=== PATIENT | male | born 1960 | race Caucasian/White ===

== ENCOUNTER 2017-11-14 15:02 | Inpatient (IN) ==
--- NOTE | 2017-11-14 18:39 | Internal Med History&Physical ---
<Adriel Yeager - Last Filed: 11/14/17 18:51> Date of Encounter: 11/14/17 Time of Encounter: 18:33 Internal Medicine - H&P: HPI Chief complaint: Dysphagia, esophageal tumor Admitted From: Direct Admit History of present illness: Mr. Martinez is a 57 year old male with a PMH of GERD and hypertension who presented to [facility] on 11/14 as a direct admit from GI after endoscopy demonstrated a near obstructing tumor in the lower third of the esophagus. Patient reports that approximately 3 months ago, he had begun experiencing swallowing difficulty. Patient noted that whenever he consumed solid food, he would get stuck in his throat and develop an discomfort in the upper third of his chest before spitting his food back up. He presented to his primary care provider on 09/23, who referred him to GI for further workup. Dr. Laughlin saw the patient on 11/06 who recommended an EGD at the time. EGD was performed on 11/14 and demonstrated the following: Large, ulcerating mass with no bleeding and no stigmata in the lower third of the esophagus, near obstructing, circumferential. Biopsies were taken, and patient was admitted to the hospital per the recommendations of GI for further management. GI recommends the placement of a PEG tube, as patient has had inadequate by mouth intake. He reports that this progressively got worse, to the point where it would occasionally involve liquids. He notes that over the past 3 months, he has lost approximately 30 pounds. He states that he feels thirsty right now. He denies having any abdominal pain, nausea, vomiting, fever, chills, fatigue, hematemesis, or chest pain. Patient has no further complaints. Past Med Surg Social Fam HX - Past Medical History Medical history: CVA, GERD, hypertension Psychiatric history: anxiety - Past Surgical History Surgical History: tonsilectomy - Social History Smoking Status: Never smoker Alcohol use: occasionally Drug use: none - Family History Maternal Grandfather Living Status: Hx Family Cancer: Yes (colon) Internal Medicine - H&P: Meds Metoprolol Succinate [Metoprolol Succinate] 50 mg PO DAILY 11/14/17 [History] Omeprazole [PriLOSEC] 40 mg PO DAILY 11/14/17 [History] Ranitidine HCl [Acid [employer]] 150 mg PO BID 11/14/17 [History] Sucralfate [Carafate] 1 gm PO BID 11/14/17 [History] 3 Allergy/AdvReac Type Severity Reaction Status Date / Time No Known Allergies Allergy Verified 11/14/17 17:27 All Systems PM: A 10-system review of systems was performed and is negative for pertinent findings except as documented above in the HPI. - Constitutional Constitutional: weight loss (Patient admits to a 30 pound weight loss in last 3 months), no chills, no fatigue - Cardiovascular Cardiovascular ROS IM: no chest pain, no dyspnea - Respiratory Respiratory: no cough, no dyspnea, no hemoptysis - Gastrointestinal Gastrointestinal: dysphagia, other (Dysphagia), no bloating, no change in bowel habits, no dyspepsia - Constitutional Vitals: Temp Pulse Resp BP Pulse Ox 98.3 F 71 18 154/94 94 11/14/17 16:48 11/14/17 16:48 11/14/17 16:48 11/14/17 16:48 11/14/17 16:48 General appearance: Present: A&O X 3 - Respiratory Respiratory exam: Present: CTAB. Absent: accessory muscle use, rales, rhonchi, wheezes - Cardiovascular Cardiovascular exam: Present: RRR, +S1, +S2. Absent: diastolic murmur, gallop, rubs, systolic murmur - GI/Abdominal GI/Abdominal exam: Present: normal bowel sounds, soft, no peritoneal signs. Absent: distended, tenderness - Psychiatric Psychiatric exam: Present: flat affect - Other Additional findings: Physical exam is unremarkable. Patient denies having any current symptoms. 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 Current Visit: Yes Status: Acute Assessment and plan: Endoscopy on 11/14 demonstrated near obstructing, circumferential mass - Evaluated by GI after a 3 month history of dysphagia and weight loss - Per the recommendations of GI, plan is to place PEG tube, this patient has had poor by mouth intake for the last several weeks - Esophageal mass will be addressed surgically at a later time Plan: - Patient is currently NPO; anticipate placement of PEG tube - Consult to general surgery - [facility] IVF at 100 mL/hr - Time Spent With Patient Total time spent is greater than 50% in coordination of care (as documented) at patient's floor/unit and/or counseling patient: <Carlos Pleitez - Last Filed: 11/14/17 20:47> Date of Encounter: 11/14/17 Internal Medicine - H&P: HPI History of present illness: Mr. Martinez is a 57 year old male All Systems PM: A 10-system review of systems was performed and is negative for pertinent findings except as documented above in the HPI. - Constitutional Vitals: Temp Pulse Resp BP Pulse Ox 98.1 F 80 15 157/91 96 11/14/17 18:47 11/14/17 18:47 11/14/17 18:47 11/14/17 18:47 11/14/17 18:47 - Attending Attestation I examined this patient and my medical decision-making was reviewed with the Resident Physician on 11/14/17. I agree with the documented findings, disposition and treatment plan as described except to the extent set forth below. Mr Martinez is 57 y/o male with hx of HTN admitted from endoscopy due to esophageal mass. He has had issues with dysphagia and weight loss and underwent EGD today. Mass found in lower third of esophagus. Currently he denies pain or dyspnea. He is thirsty. No fever or chills. Exam alert Mod distress Mucus membranes dry Heart reg No wheeze abd obese and soft No edema I/P 1. Esophageal mass 2. HTN 3. Morbid obesity Nonsmoker, occasional ETOH. Most likely related to GERD. CTs ordered Surgery and onc consulted. 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 Unable to take PO at this time. Qualifiers: Hypertension type: essential hypertension Qualified Code(s): I10 - Essential (primary) hypertension (4) Morbid obesity with BMI of 45.0-49.9, adult Current Visit: Yes Status: Chronic - Time Spent With Patient Total time spent is greater than 50% in coordination of care (as documented) at patient's floor/unit and/or counseling patient:
[2017-11-14] MEDS ORDERED: Naloxone 0.4 MG/ML INJ IVP PRN (18:45)
[2017-11-14] MEDS ORDERED: Isovue-370 500 ML INFUS..BTL IV ONE (19:36)
[2017-11-14] MEDS ORDERED: *HR* LORazepam 2 MG/ML VIAL IVP PRN (19:38)
[2017-11-14] MEDS: 0.9 % Sodium Chloride 1,000 ML IVC SCH (20:11)
[2017-11-14 21:43] LABS: BUN/Creatinine Ratio 12 (6-26); Blood Urea Nitrogen 11 mg/dL (6-20); Carbon Dioxide 25 mEq/L (23-29); Chloride 104 mEq/L (98-107); Glucose 102 mg/dL (70-105); Osmolality,Calculated 282 (280-300); Potassium 3.9 mEq/L (3.5-5.1); Sodium 136 mEq/L (136-145); eGFR For Non-African Americans > 60 (> 60)
[2017-11-15] MEDS: Metoclopramide 10 MG/2 ML VIAL IVP SCH ×4 (00:09→17:24)
[2017-11-15] MEDS: Pantoprazole 40 MG VIAL IVP SCH ×2 (06:40→17:22)
[2017-11-15] MEDS: 0.9 % Sodium Chloride 1,000 ML IVC SCH (06:40)
[2017-11-15 06:41] LABS: Basophils % 0.4 %; Eosinophils # 0.3 K/mcL (0.0-0.6); Eosinophils % 2.6 %; Hematocrit 42.6 % (37.5-50.1); Hemoglobin 14.7 g/dL (12.9-16.9); Immature Granulocytes % 0.3 % (0-4); Lymphocytes # 2.2 K/mcL (0.6-4.6); Lymphocytes % 20.2 %; Mean Corpuscular HGB Conc 34.5 g/dL (31.6-35.5); Mean Corpuscular Hemoglobin 30.7 pg (28.0-33.3); Mean Corpuscular Volume 88.9 fL (83.0-100.0); Mean Platelet Volume 9.2 fL (9.4-12.4); Monocytes # 0.6 K/mcL (0.0-1.3); Neutrophils # 7.5 K/mcL (1.6-8.9); Platelet Count 281 K/mcL (140-400); Red Blood Count 4.79 M/mcL (4.19-5.50); Segmented Neutrophils % 70.5 %
[2017-11-15 06:46] LABS: INR 1.2; Prothrombin Time 13.5 Seconds (9.4-12.1)
[2017-11-15 07:00] LABS: BUN/Creatinine Ratio 11 (6-26); Blood Urea Nitrogen 10 mg/dL (6-20); Carbon Dioxide 25 mEq/L (23-29); Chloride 104 mEq/L (98-107); Glucose 99 mg/dL (70-105); Osmolality,Calculated 283 (280-300); Potassium 3.6 mEq/L (3.5-5.1); Sodium 137 mEq/L (136-145); eGFR For Non-African Americans > 60 (> 60)
--- NOTE | 2017-11-15 11:31 | Oncology Inp Consult Note ---
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 Martinez, his and sister today. I reviewed his history, imaging, labs and EGD report. 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 He has significant dysphagia and oral intake has been greatly impacted. To aid with this, I recommended G-tube placement. Per my experience with the [facility] thoracic surgical team, G-tubes are acceptable as a means of nutrition. Dr. Winston has scheduled placement tomorrow. I did review his imaging. He does not appear to have jorge l evidence of distant metastases, however he does have extensive mediastinal adenopathy as well as perigastric and celiac adenopathy. The lesions within the liver appeared to be cysts. PET/CT imaging will help clarify these issues better. I think this is amendable to one radiation port but will be quite large. This will impact the management of his cancer. We discussed the current standard approach to management which includes tri-modality therapy including concurrent chemoradiotherapy to be followed by surgical esophagectomy. The logistics, schedule and general side effects of therapy were discussed with the patient today. In preparation for treatment, I recommended outpatient PET CT imaging. I would recommend nutrition consultation after G-tube placement. After discharge, I will schedule follow-up with both radiation oncology as well as myself this coming week. - Data of Consult Requesting Physician: Carlos Pleitez DO - Consult Narrative Reason for consult: Esophageal cancer History of present illness: Mr. Martinez is a 57 year old male who noted worsening dysphagia to solid foods this past June/early July. He initially noted difficulty with food sticking in his distal esophagus including breads and meats. He is now unable to eat any bread or fibers meat product. This later progressed into it involving fluids as well. When drinking cold water, he will regurgitate this. He has a long-standing history of acid reflux. He has lost nearly 30 pounds over this period of time. He was referred to Dr. Laughlin who performed EGD and colonoscopy 11/14/2017. Colonoscopy revealed a 15 mm polyp in the sigmoid colon which was snared, internal hemorrhoids as well as diverticular disease but otherwise no significant abnormality. EGD revealed a fungating, nonbleeding, circumferential , and nearly obstructing mass 37 cm from the incisors concerning for distal esophageal adenocarcinoma. Biopsies were obtained. Pathology is pending. He was unable to pass the scope and therefore was unable to place an esophageal stent. Dr. Winston of general surgery has been consult it for feeding tube placement. I have been asked to meet with this patient to discuss further management. 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[employer]) - Family History Maternal Grandfather Living Status: Hx Family Cancer: Yes (colon) Medications and Allergies Metoprolol Succinate [Metoprolol Succinate] 50 mg PO DAILY 11/14/17 [History] Omeprazole [PriLOSEC] 40 mg PO DAILY 11/14/17 [History] Ranitidine HCl [Acid [employer]] 150 mg PO BID 11/14/17 [History] Sucralfate [Carafate] 1 gm PO BID 11/14/17 [History] 3 Allergy/AdvReac Type Severity Reaction Status Date / Time No Known Allergies Allergy Verified 11/14/17 17:27 All systems: reviewed and no additional remarkable complaints except as stated Constitutional: Present: fatigue, weight loss Eyes: Present: as per HPI Ears: Present: as per HPI Nose, mouth and throat: Present: as per HPI Cardiovascular: Present: dyspnea on exertion Respiratory: Present: as per HPI Gastrointestinal: Present: dysphagia, early satiety, vomiting Genitourinary: urinary frequency Integumentary: Present: as per HPI Neurological: Present: as per HPI Hematologic/Lymphatic: Present: as per HPI Oncology - Exam - Constitutional Vitals: Temp Pulse Resp BP Pulse Ox 98.4 F 72 18 117/68 96 11/15/17 11:09 11/15/17 11:09 11/15/17 11:09 11/15/17 11:09 11/15/17 11:09 General appearance: cooperative, no acute distress, obese - Head Head exam: Present: atraumatic, normal inspection, normocephalic - Eye Eye exam: Present: normal appearance, conjuntiva pink, sclera anicteric - ENT ENT exam: Present: mucous membranes moist, normal external ear exam - Neck Neck exam: Present: full ROM, normal inspection - Respiratory Respiratory exam: Present: CTAB - Cardiovascular Cardiovascular exam: Present: RRR - GI/Abdominal GI/Abdominal exam: Present: normal bowel sounds, soft - Extremities Exam Extremities exam: Present: normal inspection, pedal edema - Neurological Exam Neurological exam: Present: alert, CN II-XII intact, normal gait, oriented X3, no focal deficits - Skin Skin exam: Present: normal color Oncology - Results Labs: 3 11/15/17 11/15/17 11/15/17 09:56 06:28 06:28 WBC RBC Hgb Hct MCV MCH MCHC RDW Plt Count MPV Immature Gran % Seg Neutrophils % Lymphocytes % Monocytes % Eosinophils % Basophils % Neutrophils # Lymphocytes # Monocytes # Eosinophils # Basophils # PT 13.5 H INR 1.2 Sodium 137 Potassium 3.6 Chloride 104 Carbon Dioxide 25 BUN 10 Creatinine 0.89 Est GFR ( Amer) > 60 Est GFR (Non-Af Amer) > 60 BUN/Creatinine Ratio 11 Glucose 99 Calculated Osmolality 283 Calcium 9.0 Prealbumin 17.7 3 11/15/17 11/14/17 06:28 21:04 WBC 10.7 RBC 4.79 Hgb 14.7 Hct 42.6 MCV 88.9 MCH 30.7 MCHC 34.5 RDW 13.0 Plt Count 281 MPV 9.2 L Immature Gran % 0.3 Seg Neutrophils % 70.5 Lymphocytes % 20.2 Monocytes % 6.0 Eosinophils % 2.6 Basophils % 0.4 Neutrophils # 7.5 Lymphocytes # 2.2 Monocytes # 0.6 Eosinophils # 0.3 Basophils # 0.0 PT INR Sodium 136 Potassium 3.9 Chloride 104 Carbon Dioxide 25 BUN 11 Creatinine 0.94 Est GFR ( Amer) > 60 Est GFR (Non-Af Amer) > 60 BUN/Creatinine Ratio 12 Glucose 102 Calculated Osmolality [address] OF THE ABDOMEN AND PELVIS WITH CONTRAST; CT OF THE CHEST WITH CONTRAST 11/14/2017 9:06 pm; 11/14/2017 9:08 pm FINDINGS: Chest: Mediastinum: There are mildly enlarged mediastinal lymph nodes. For example, a right peritracheal lymph node measures 1.7 x 1.3 cm (series 2, image 40). Subcarinal lymph node measures 2.4 x 1.5 cm (series 2, image 85). There is focal mural thickening of the distal esophagus measures as much as 3.7 cm in thickness. Adjacent to that, there is a mid mildly enlarged lymph node which measures 1.1 x 1.1 cm (series 2, image 127). The more proximal esophagus is dilated and fluid-filled. The thoracic aorta is normal in caliber. The visualized pulmonary arteries are unremarkable in appearance. Lungs/pleura: Atelectasis/scarring is identified within the right costophrenic angle, with elevation of the right hemidiaphragm. No suspicious lung lesions are detected. Soft Tissues/Bones: No osteolytic or osteoblastic bone lesions are identified. Abdomen/Pelvis: Organs: Approximately 4-5 low-density lesions are identified within the hepatic parenchyma largest measuring 1.7 x 1.5 cm within the inferior right hepatic lobe. Based upon density, these are probably cysts, but the margins are slightly irregular, and therefore surveillance of those will be necessary. Gallbladder is unremarkable. No suspicious splenic abnormalities. Normal adrenals. The pancreas enhances homogeneously. No suspicious renal abnormalities are detected. Cyst within the left kidney measures 1.3 cm, a benign finding. Nonobstructing nephrolithiasis on the left is noted. GI/Bowel: There is mild diverticulosis of the large bowel, without CT evidence of diverticulitis, mainly in the region of the sigmoid colon. No small bowel abnormalities are detected. There is probable partial extension of the esophageal mass into the gastric cardia. Otherwise, the stomach and duodenum are unremarkable. Pelvis: Prostate is mildly enlarged. The urinary bladder is unremarkable. No free pelvic fluid is found. Peritoneum/Retroperitoneum: There are mildly enlarged upper abdominal lymph nodes. For example, a lymph node seen adjacent to the gastric cardia measures 1.8 x 1.2 cm (series 2, image 51). The abdominal aorta is normal in caliber. The superior mesenteric artery is enhancing. Bones/Soft Tissues: No osteolytic or osteoblastic bone lesions are identified within the abdomen pelvis. CT/CT abd pelvis w iv no oral IMPRESSION: Evidence a primary lower esophageal mass. There are enlarged mediastinal and upper abdominal lymph nodes, concerning for metastatic disease. There are several low-density lesions within the hepatic parenchyma, which measure water density, and therefore probably cysts. However, the margins are mildly irregular, and therefore surveillance of those on subsequent examinations is recommended. Mild diverticulosis of the large bowel, mainly in the region of the sigmoid colon, but without CT evidence of diverticulitis. Nonobstructing left nephrolithiasis. Consult Discharge Plan - Plan Referrals: Qasim Rodriguez MD [Partnered Physician] -
[2017-11-15] MEDS: *HR* Metoprolol 5 MG/5 ML VIAL IVP SCH ×2 (12:18→17:22)
--- NOTE | 2017-11-15 12:46 | General Surgery Consult Note ---
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 Patient agreed to procedure scheduled for tomorrow. Consent form was signed by the patient. IV fluids as per primary Further recommendations for esophageal mass per oncology History of Present Illness Consult date: 11/15/17 History of present illness: Patient states that he started noticing that he was having trouble swallowing solids starting in July he feels that he can still swallow liquids. But on further questioning he states that this is only small amounts of liquid slowly. Otherwise he ends up bringing the liquid back up. He does not have any abdominal pain. He denies diarrhea, constipation, blood in stool or blood in any vomit. States he has two Paternal uncles who had stomach/esophageal cancer. Occasionally drinks rum. Past Med Surg Social Fam HX - Past Medical History Medical history: CVA, GERD, hypertension Psychiatric history: anxiety - Past Surgical History Surgical History: tonsilectomy - Social History Smoking Status: Former smoker Alcohol use: occasionally Drug use: none - Family History Maternal Grandfather Living Status: Hx Family Cancer: Yes (colon) Medications and Allergies Metoprolol Succinate [Metoprolol Succinate] 50 mg PO DAILY 11/14/17 [History] Omeprazole [PriLOSEC] 40 mg PO DAILY 11/14/17 [History] Ranitidine HCl [Acid Principal Librarian] 150 mg PO BID 11/14/17 [History] Sucralfate [Carafate] 1 gm PO BID 11/14/17 [History] 3 Allergy/AdvReac Type Severity Reaction Status Date / Time No Known Allergies Allergy Verified 11/14/17 17:27 Review of Systems All systems PM: The remainder of the systems were reviewed and are negative - Constitutional weight loss (30 pounds since September), no anorexia, no fatigue - Cardiovascular no chest pain, no diaphoresis, no irregular heart rhythm - Respiratory no cough, no dyspnea, no chest congestion - Gastrointestinal dysphagia, vomiting, no abdominal pain, no hematemesis, no hematochezia General Surgery Exam Initial Vital Signs Temp Pulse Resp BP Pulse Ox 98.3 F 71 18 154/94 94 11/14/17 16:48 11/14/17 16:48 11/14/17 16:48 11/14/17 16:48 11/14/17 16:48 - Respiratory normal expansion, normal respiratory effort, clear to auscultation - Cardiovascular Cardiovascular exam: Present: RRR, no murmurs/rubs/gallops - Abdomen Abdomen general surgery: Present: bowel sounds present, soft, non tender - Musculoskeletal Present: normal posture - Psychiatric Psychiatric general surgery: Present: oriented to person, oriented to place, oriented to time Exam Initial Vital Signs Temp Pulse Resp BP Pulse Ox 98.3 F 71 18 154/94 94 11/14/17 16:48 11/14/17 16:48 11/14/17 16:48 11/14/17 16:48 11/14/17 16:48 Results - Labs 11/15/17 06:28 11/15/17 06:28 Abnormal lab results MPV 9.2 fL (9.4-12.4) L 11/15/17 06:28 PT 13.5 Seconds (9.4-12.1) H 11/15/17 06:28 Diabetes panel 11/14/17 11/15/17 Range/Units 21:04 06:28 Sodium 136 137 (136-145) mEq/L Potassium 3.9 3.6 (3.5-5.1) mEq/L Chloride 104 104 (98-107) mEq/L Carbon Dioxide 25 25 (23-29) mEq/L BUN 11 10 (6-20) mg/dL Creatinine 0.94 0.89 (0.70-1.30) mg/dL Glucose 102 99 (70-105) mg/dL Calcium 9.0 9.0 (8.6-10.3) mg/dL Calcium panel 11/14/17 11/15/17 Range/Units 21:04 06:28 Calcium 9.0 9.0 (8.6-10.3) mg/dL Pituitary panel 11/14/17 11/15/17 Range/Units 21:04 06:28 Sodium 136 137 (136-145) mEq/L Potassium 3.9 3.6 (3.5-5.1) mEq/L Chloride 104 104 (98-107) mEq/L Carbon Dioxide 25 25 (23-29) mEq/L BUN 11 10 (6-20) mg/dL Creatinine 0.94 0.89 (0.70-1.30) mg/dL Glucose 102 99 (70-105) mg/dL Calcium 9.0 9.0 (8.6-10.3) mg/dL Adrenal panel 11/14/17 11/15/17 Range/Units 21:04 06:28 Sodium 136 137 (136-145) mEq/L Potassium 3.9 3.6 (3.5-5.1) mEq/L Chloride 104 104 (98-107) mEq/L Carbon Dioxide 25 25 (23-29) mEq/L BUN 11 10 (6-20) mg/dL Creatinine 0.94 0.89 (0.70-1.30) mg/dL Glucose 102 99 (70-105) mg/dL Calcium 9.0 9.0 (8.6-10.3) mg/dL All other labs normal. 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 Current Visit: Yes Status: Acute discussed with patient and his and sister that he has an obstructing esophageal mass consistent wiht cancer, he has already spoken with Dr Henry from oncology Patient needs nutritional support discussed open Gtube versus Jtube and Dr Henry conferred that 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 Initially this was to solids but is now solids and liquids. He really only tolerates drinking warm broth. He sleeps propped up in chair and wakes aspirating on his regurgitated saliva. He has lost 30 lbs since September. He denies any abdominal pain, nausea or emesis. He has no melena or hematochezia. He had upper endoscopy by GI yesterday and they found an obstructing nonpassable esophageal mass at lower esophagus. CT scans abdomen/pelvis and chest show mediastinal and periesophageal lymph nodes. His states he has two paternal uncles with esophageal cancer (one of those with gastric cancer??) Past Med Surg Social Fam HX - Past Medical History Source: patient - Past Surgical History Surgical History: tonsilectomy - Social History Occupational status: employed Current living situation: Home, With Family Review of Systems All systems PM: reviewed and no additional remarkable complaints except as stated All systems PM: The remainder of the systems were reviewed and are negative General Surgery Exam Initial Vital Signs Temp Pulse Resp BP Pulse Ox 98.3 F 71 18 154/94 94 11/14/17 16:48 11/14/17 16:48 11/14/17 16:48 11/14/17 16:48 11/14/17 16:48 - General physical appearance well nourished, no distress, obese - Eyes PERRL, normal ocular movement - ENT normal mucosa, normocephalic - Neck trachea midline - Cardiovascular Cardiovascular exam: Present: RRR, no murmurs/rubs/gallops - Abdomen Abdomen general surgery: Present: bowel sounds present, soft, non tender. Absent: distended - Integumentary Integumentary general surgery: Present: warm and dry, no abnormal pigmentation - Neurologic Present: CN 2-12 grossly intact - Musculoskeletal Present: normal posture - Psychiatric Psychiatric general surgery: Present: A&Ox3, oriented to time Exam Initial Vital Signs Temp Pulse Resp BP Pulse Ox 98.3 F 71 18 154/94 94 11/14/17 16:48 11/14/17 16:48 11/14/17 16:48 11/14/17 16:48 11/14/17 16:48 Results - Labs 11/15/17 06:28 11/15/17 06:28 Abnormal lab results MPV 9.2 fL (9.4-12.4) L 11/15/17 06:28 PT 13.5 Seconds (9.4-12.1) H 11/15/17 06:28 Diabetes panel 11/14/17 11/15/17 Range/Units 21:04 06:28 Sodium 136 137 (136-145) mEq/L Potassium 3.9 3.6 (3.5-5.1) mEq/L Chloride 104 104 (98-107) mEq/L Carbon Dioxide 25 25 (23-29) mEq/L BUN 11 10 (6-20) mg/dL Creatinine 0.94 0.89 (0.70-1.30) mg/dL Glucose 102 99 (70-105) mg/dL Calcium 9.0 9.0 (8.6-10.3) mg/dL Calcium panel 11/14/17 11/15/17 Range/Units 21:04 06:28 Calcium 9.0 9.0 (8.6-10.3) mg/dL Pituitary panel 11/14/17 11/15/17 Range/Units 21:04 06:28 Sodium 136 137 (136-145) mEq/L Potassium 3.9 3.6 (3.5-5.1) mEq/L Chloride 104 104 (98-107) mEq/L Carbon Dioxide 25 25 (23-29) mEq/L BUN 11 10 (6-20) mg/dL Creatinine 0.94 0.89 (0.70-1.30) mg/dL Glucose 102 99 (70-105) mg/dL Calcium 9.0 9.0 (8.6-10.3) mg/dL Adrenal panel 11/14/17 11/15/17 Range/Units 21:04 06:28 Sodium 136 137 (136-145) mEq/L Potassium 3.9 3.6 (3.5-5.1) mEq/L Chloride 104 104 (98-107) mEq/L Carbon Dioxide 25 25 (23-29) mEq/L BUN 11 10 (6-20) mg/dL Creatinine 0.94 0.89 (0.70-1.30) mg/dL Glucose 102 99 (70-105) mg/dL Calcium 9.0 9.0 (8.6-10.3) mg/dL All other labs normal. - Imaging CT scan - abdomen: report reviewed, image reviewed CT scan - chest: report reviewed, image reviewed CT scan - pelvis: report reviewed, image reviewed - Attending Attestation I examined this patient and my medical decision-making was reviewed with the Resident Physician. I agree with the documented findings, disposition and treatment plan as described except to the extent set forth below.
--- NOTE | 2017-11-15 16:19 | Internal Med Progress Note ---
Hospitalist Progress Note - Encounter Date of Encounter: 11/15/17 Time of Encounter: 12:30 - Subjective Interval History: Mr Martinez has been in observation for esophageal obstruction due to esophageal mass. He remains moderate to high risk. Mr Martinez slept OK. He is going to have a little bit of broth today. To have open G tube placed tomorrow. No pain. No diarrhea. No fever or chills. Family is at bedside at this time. - Exam Vitals: Temp Pulse Resp BP Pulse Ox 97.9 F 83 18 134/85 92 11/15/17 14:30 11/15/17 14:30 11/15/17 14:30 11/15/17 14:30 11/15/17 14:30 Exam: General: Alert and oriented. Resting comfortably in bed at this time. Skin: Normal color, no rash, no lesions. Head: NC, atraumatic Eyes: EOM, pupils equal, round and reactive. ENT: Mucus membranes moist. No lesion. Cardiovascular: Normal S1 & S2, no rubs, murmurs or gallops. No JVD. Pulse regular. Lungs: Normal breath sounds, no wheezes or crackles. Good inspiratory effort Abdomen: Soft, non-tender, no rigidity. Normal bowel sounds. Obese. Extremities: No deformity, no edema or tenderness, no joint swelling or clubbing. Neurological: Normal cognition and motor skills. No focal deficit noted. Pulses: Carotid and radial pulses normal +2. Skin: No rash - Assessment and Plan (1) Esophageal obstruction Current Visit: Yes Status: Acute Assessment and Plan: Due to esophageal mass. Sips of broth today then NPO after midnight To have open G tube tomorrow. 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 - Open G tube tomorrow then tube feeds when OK with surgery. (3) Hypertension Current Visit: Yes Status: Chronic Assessment and Plan: IV meds ordered. Unable to take PO at this time. BP has been up and down. (4) Morbid obesity with BMI of 45.0-49.9, adult Current Visit: Yes Status: Chronic Assessment and Plan: Chronic issue. DVT Prophylaxis: SCDs - Time Spent with Patient Total time spent is greater than 50% in coordination of care (as documented) at patient's floor/unit and/or counseling patient: Internal Medicine: Result - Labs CBC & Chem 7: 11/15/17 06:28 11/15/17 06:28 Labs: Short CBC 11/15/17 Range/Units 06:28 WBC 10.7 (4.3-11.1) K/mcL Hgb 14.7 (12.9-16.9) g/dL Hct 42.6 (37.5-50.1) % Plt Count 281 (140-400) K/mcL Neutrophils # 7.5 (1.6-8.9) K/mcL BMP 11/14/17 11/15/17 21:04 06:28 Sodium 136 137 Potassium 3.9 3.6 Chloride 104 104 Carbon Dioxide 25 25 BUN 11 10 Creatinine 0.94 0.89 Glucose 102 99 Calcium 9.0 9.0 - ABG Interpretation ABG results: PT/INR, D-dimer PT 13.5 Seconds (9.4-12.1) H 11/15/17 06:28 - Impressions Impressions Abdomen/Pelvis CT 11/14/17 19:36 IMPRESSION: Evidence a primary lower esophageal mass. There are enlarged mediastinal and upper abdominal lymph nodes, concerning for metastatic disease. There are several low-density lesions within the hepatic parenchyma, which measure water density, and therefore probably cysts. However, the margins are mildly irregular, and therefore surveillance of those on subsequent examinations is recommended. Mild diverticulosis of the large bowel, mainly in the region of the sigmoid colon, but without CT evidence of diverticulitis. Nonobstructing left nephrolithiasis. D/ / Aquiles Obrien MD / Aquiles Obrien MD Interpreting Provider: Aquiles Obrien MD Chest CT 11/14/17 19:36 IMPRESSION: Evidence a primary lower esophageal mass. There are enlarged mediastinal and upper abdominal lymph nodes, concerning for metastatic disease. There are several low-density lesions within the hepatic parenchyma, which measure water density, and therefore probably cysts. However, the margins are mildly irregular, and therefore surveillance of those on subsequent examinations is recommended. Mild diverticulosis of the large bowel, mainly in the region of the sigmoid colon, but without CT evidence of diverticulitis. Nonobstructing left nephrolithiasis. D/ / Aquiles Obrien MD / Aquiles Obrien MD Interpreting Provider: Aquiles Obrien MD - VTE Documentation of Mechanical Device: Intermittent pneumatic compression device Consult Discharge Plan - Plan Referrals: Qasim Rodriguez MD [Partnered Physician] - (3) Hypertension Qualifiers: Hypertension type: essential hypertension Qualified Code(s): I10 - Essential (primary) hypertension
[2017-11-16] MEDS: Metoclopramide 10 MG/2 ML VIAL IVP SCH ×4 (00:58→18:00)
[2017-11-16] MEDS: *HR* Metoprolol 5 MG/5 ML VIAL IVP SCH ×4 (00:58→18:00)
[2017-11-16 04:31] LABS: Basophils # 0.1 K/mcL (0.0-0.2); Basophils % 0.5 %; Eosinophils # 0.3 K/mcL (0.0-0.6); Eosinophils % 3.1 %; Hematocrit 40.9 % (37.5-50.1); Hemoglobin 13.6 g/dL (12.9-16.9); Immature Granulocytes % 0.4 % (0-4); Lymphocytes # 2.2 K/mcL (0.6-4.6); Lymphocytes % 22.1 %; Mean Corpuscular HGB Conc 33.3 g/dL (31.6-35.5); Mean Corpuscular Hemoglobin 29.2 pg (28.0-33.3); Mean Platelet Volume 9.2 fL (9.4-12.4); Monocytes # 0.6 K/mcL (0.0-1.3); Neutrophils # 6.8 K/mcL (1.6-8.9); Platelet Count 271 K/mcL (140-400); Red Blood Count 4.65 M/mcL (4.19-5.50); Red Cell Distribution Width 13.2 % (11.5-14.5); Segmented Neutrophils % 67.9 %
[2017-11-16 04:40] LABS: INR 1.2; Prothrombin Time 13.1 Seconds (9.4-12.1)
[2017-11-16 04:49] LABS: BUN/Creatinine Ratio 11 (6-26); Blood Urea Nitrogen 10 mg/dL (6-20); Carbon Dioxide 26 mEq/L (23-29); Chloride 104 mEq/L (98-107); Glucose 88 mg/dL (70-105); Osmolality,Calculated 282 (280-300); Potassium 3.8 mEq/L (3.5-5.1); Sodium 137 mEq/L (136-145); eGFR For Non-African Americans > 60 (> 60)
[2017-11-16] MEDS: Pantoprazole 40 MG VIAL IVP SCH ×2 (06:42→18:00)
--- NOTE | 2017-11-16 07:10 | Anesthesia Evaluation PreOp ---
Date of Encounter: 11/16/17 Time of Encounter: 07:08 - Past History Planned Operation: Open G-Tube Cardiac History: HTN Pulmonary History: Former smoker (quit in ) LUMBER STICKER History: CVA (CVA x 1 in , no residual deficits) Other Medical History: GERD (tumor in abdominal part of esophagus), Other ( obesity BMI=49.7) Anesthesia History: No Prior Anesthetic Complications, Past Anesthesia Alcohol Use: occasionally Drug use: none Medications and Allergies Metoprolol Succinate [Metoprolol Succinate] 50 mg PO DAILY 11/14/17 [History] Omeprazole [PriLOSEC] 40 mg PO DAILY 11/14/17 [History] Ranitidine HCl [Acid Grease Renderer] 150 mg PO BID 11/14/17 [History] Sucralfate [Carafate] 1 gm PO BID 11/14/17 [History] 3 Allergy/AdvReac Type Severity Reaction Status Date / Time No Known Allergies Allergy Verified 11/14/17 17:27 - Meds/Allergy Pre-op Review Medications Reviewed: Yes Allergies Reviewed: Yes Beta Blockers on Current Med List: Yes If Beta Blockers taken, Date/Time (Last Dose taken): 11/16/2017 at 0058 Anesthesia Results - Labs 11/16/17 04:00 11/16/17 04:00 Anesthesia Exam Vital Signs/O2 Sat/Glucose, Most Recent Temp Pulse Resp BP Pulse Ox 98.1 F 71 15 151/97 95 11/16/17 05:13 11/16/17 05:13 11/16/17 05:13 11/16/17 05:13 11/16/17 05:13 Blood Glucose* 80 Height: 5'9''/1.75m Weight: 336 lbs/152.8 kg NPO (# of Hours): 8 Pain Scale: 0 Pain Scale Used: Numeric (1 - 10) - HEENT Pupil (Motor): EOMI Mallampati: IV Teeth: Normal Oral Opening: Greater than 3 - LUMBER STICKER LOC: Oriented LUMBER STICKER Motor: Normal RUE, Normal LUE, Normal RLE, Normal LLE, Normal Face LUMBER STICKER Sensory: Normal: RUE, LUE, RLE, LLE, Face - Cardiac Rhythm: Regular Murmur: None - Pulmonary Breath Sounds: bilateral Clear Respiratory Effort: Symmetrical Anesthesia Assess/Plan ASA Score: 4 Modified Alexis Scale for Level of Consciousness: Cooperative, oriented, and tranquil Anesthetic Plan: General Monitoring Plan: Standard Monitors Recovery Plan: PACU
[2017-11-16] MEDS ORDERED: Dexamethasone 4 MG/ML VIAL ONE (07:53)
[2017-11-16] MEDS ORDERED: Ondansetron 4 MG/2 ML VIAL ONE (07:53)
[2017-11-16] MEDS ORDERED: *HR* Succinylcholine 200 MG/10 ML VIAL IVP ONE (07:53)
[2017-11-16] MEDS ORDERED: Lidocaine -MPF 2% 2 ML VIAL ONE (07:53)
[2017-11-16] MEDS ORDERED: *HR* Propofol 200 MG/20 ML VIAL IVP ONE (07:55)
[2017-11-16] MEDS ORDERED: *HR* FentaNYL (PF) 100 MCG/2 ML VIAL ONE ×2 (07:55→08:42)
[2017-11-16] MEDS ORDERED: *HR* Midazolam HCl 2 MG/2 ML VIAL ONE (07:55)
[2017-11-16] MEDS ORDERED: Lidocaine -MPF 1% 5 ML AMPUL ONE (07:57)
[2017-11-16] MEDS ORDERED: CefOXitin 2,000 MG VIAL ONE (08:12)
[2017-11-16] MEDS ORDERED: *HR* Metoprolol 5 MG/5 ML VIAL IVP ONE (08:27)
[2017-11-16] MEDS ORDERED: cefOXitin 2,000 MG in Water for inj. (sterile) 20 ML 20 ML IVP ONE (08:40)
[2017-11-16] MEDS ORDERED: *HR* Promethazine 25 MG/ML VIAL IVP PRN (08:54)
[2017-11-16] MEDS ORDERED: Ondansetron 4 MG/2 ML VIAL IVP ONE (08:54)
[2017-11-16] MEDS ORDERED: *HR* Labetalol 20 MG/4 ML SYRINGE IVP PRN (08:54)
[2017-11-16] MEDS ORDERED: Naloxone 0.4 MG/ML INJ IVP PRN (08:54)
[2017-11-16] MEDS ORDERED: *HR* FentaNYL (PF) 100 MCG/2 ML VIAL IVP PRN (08:54)
[2017-11-16] MEDS ORDERED: *HR* OxyCODONE Immed Rel 5 MG TABLET PO PRN (08:54)
[2017-11-16] MEDS ORDERED: Ringers Solution, Lactated 1,000 ML IVC SCH (09:00)
[2017-11-16] MEDS ORDERED: Esmolol 100 MG/10 ML VIAL IVP ONE (09:00)
[2017-11-16] MEDS ORDERED: Acetaminophen IV 1,000 MG/100 ML INFUS..BTL ONE (09:03)
[2017-11-16] MEDS ORDERED: Neostigmine Methylsulfate 3 MG/3 ML SYRINGE ONE (09:03)
[2017-11-16] MEDS ORDERED: *HR* Rocuronium Bromide 50 MG/5 ML VIAL ONE (09:03)
[2017-11-16] MEDS ORDERED: *HR* Labetalol 20 MG/4 ML SYRINGE IVP ONE (09:22)
[2017-11-16] MEDS ORDERED: Albuterol 2.5 MG/3 ML NEBULIZER ONE (09:42)
[2017-11-16] MEDS ORDERED: Albuterol 2.5 MG/3 ML NEBULIZER IH ONE (09:43)
--- NOTE | 2017-11-16 10:09 | Anesthesia Evaluation Post Op ---
Date of Encounter: 11/16/17 Time of Encounter: 10:08 - Vital Signs Vital Signs: Vital Signs/O2 Sat, Most Current Temp Pulse Resp BP Pulse Ox 99.3 F 82 16 161/95 92 11/16/17 10:11/16/17 10:11/16/17 10:11/16/17 10:11/16/17 10:01 - Lungs Lungs: Clear Ascult./Percussion - Airway Airway: Non-obstructed - Cardiovascular Regular Rate - Mental Status Mental Status: Alert & Oriented, Answers Appropriately - Pain Pain Scale: 3 Pain Scale used: Numeric (1 - 10) - Nausea Vomiting Nausea Vomiting: Not Present - Hydration Hydration: Ice chips, Has not voided - Discharge PostOp Status: Transfer Patient to floor
[2017-11-16] MEDS ORDERED: OXYCODONE Oral CONC 10 MG/0.5 ML ORAL.SYG SL PRN ×2 (11:34)
[2017-11-16] MEDS: Ringers Solution, Lactated 1,000 ML IVC SCH (11:37)
--- NOTE | 2017-11-16 16:30 | Internal Med Progress Note ---
Hospitalist Progress Note - Encounter Date of Encounter: 11/16/17 Time of Encounter: 14:20 - Subjective Interval History: Mr Martinez has been in observation for esophageal obstruction due to esophageal mass. He remains moderate to high risk. Mr Martinez had G tube placement today. He vomited during induction. Currently he denies chest issues except for slight cough. Has sore throat. No fever or chills. Pain is OK at this time. - Exam Vitals: Temp Pulse Resp BP Pulse Ox 98.5 F 92 16 142/86 92 11/16/17 13:20 11/16/17 13:20 11/16/17 13:20 11/16/17 13:20 11/16/17 13:20 Exam: General: Alert and oriented. Resting comfortably in bed at this time. Skin: Normal color, no rash, no lesions. Head: NC, atraumatic Eyes: EOM, pupils equal, round and reactive. ENT: Mucus membranes dry. No lesion. Cardiovascular: Normal S1 & S2, no rubs, murmurs or gallops. No JVD. Pulse regular. Distant heart sounds. Lungs: Some slight congestion in upper airways. Good inspiratory effort Abdomen: Soft, no rigidity. Normal bowel sounds Dressing intact Extremities: No deformity, no edema or tenderness, no joint swelling or clubbing. Neurological: Normal cognition and motor skills. No focal deficit noted. Pulses: Carotid and radial pulses normal +2. - Assessment and Plan (1) Aspiration into airway Current Visit: Yes Status: Acute Assessment and Plan: Apparently aspirated during induction of anesthesia. CXR no infiltrate. Monitoring symptoms. (2) Esophageal obstruction Current Visit: Yes Status: Acute Assessment and Plan: Due to esophageal mass. He had open G tube today. Anticipate start tube feed tomorrow. 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 Anticipate tube feeds start tomorrow. (4) Hypertension Current Visit: Yes Status: Chronic Assessment and Plan: Will give down G tube when able to start use. (5) Morbid obesity with BMI of 45.0-49.9, adult Current Visit: Yes Status: Chronic Assessment and Plan: Chronic issue. - Time Spent with Patient Total time spent is greater than 50% in coordination of care (as documented) at patient's floor/unit and/or counseling patient: Internal Medicine: Result - Labs CBC & Chem 7: 11/16/17 04:00 11/16/17 04:00 Labs: Short CBC 11/16/17 Range/Units 04:00 WBC 10.0 (4.3-11.1) K/mcL Hgb 13.6 (12.9-16.9) g/dL Hct 40.9 (37.5-50.1) % Plt Count 271 (140-400) K/mcL Neutrophils # 6.8 (1.6-8.9) K/mcL BMP 11/16/17 04:00 Sodium 137 Potassium 3.8 Chloride 104 Carbon Dioxide 26 BUN 10 Creatinine 0.92 Glucose 88 Calcium 9.0 - ABG Interpretation ABG results: PT/INR, D-dimer PT 13.1 Seconds (9.4-12.1) H 11/16/17 04:00 - Impressions Impressions Chest X-Ray 11/16/17 09:57 IMPRESSION: Small amount of faint bilateral lower lobe airspace disease which is nonspecific. Atelectasis is favored, aspiration considered less likely. D/ / [place] Velasquez MD / Washington Velasquez MD Interpreting Provider: [place] Velasquez MD - VTE Documentation of Mechanical Device: Intermittent pneumatic compression device Consult Discharge Plan - Plan Referrals: Qasim Rodriguez MD [Partnered Physician] - (1) Aspiration into airway Qualifiers: Encounter type: initial encounter Qualified Code(s): T17.908A - Unspecified foreign body in respiratory tract, part unspecified causing other injury, initial encounter (4) Hypertension Qualifiers: Hypertension type: essential hypertension Qualified Code(s): I10 - Essential (primary) hypertension
[2017-11-16] MEDS ORDERED: Chloraseptic Spray 177 ML BOTTLE MM PRN (16:39)
--- NOTE | 2017-11-16 18:28 | Operative Note ---
Date of procedure: 11/16/17 Pre-op diagnosis: obstructing esophageal mass Post-op diagnosis: same Procedure: Open gastrostomy tube Complications: none immediate Anesthesia: PREET, local Surgeon: Stefanie Winston Was there an medical laboratory assistant present: Yes Lead Software Architect: Bindu Love Estimated blood loss (cc): 5 Specimen: none Condition: stable Disposition: PACU Procedure in Detail: Patient was brought into the operating suite and placed supine on the operating table. Sign in was performed and everyone was in agreement. Anesthesia was induced and patient had emesis upon induction of anesthesia. He was intubated without further incident. The abdomen was prepped and draped in the usual sterile fashion. Timeout was performed again everyone was in agreement. An upper midline incision through the skin into the subcutaneous tissue was made with 15 blade. We dissected through the subcutaneous tissue to the anterior abdominal wall fascia with the Bovie. Kia's are placed on either side of the fascia for retraction and the abdomen was entered with the Bovie. The middle/ distal greater curvature of the stomach was located and grasped with the Blue. An area of the left abdominal wall several centimeters below the costal margin where the stomach would reach without tension was opened with a 15 blade. A tonsil was used to dissect through the abdominal wall and a 20- Serbian gastrostomy tube was placed into this opening. The 2-0 silk pursestring stitch was placed at the greater curvature of the stomach and the stomach was opened with the Bovie in the middle of the pursestring. The gastrostomy tube was placed into the stomach lumen and 20 mL of sterile water was used to inflate the balloon. The pursestring stitch was tied firmly against the gastrostomy tube. The stomach was tacked to the anterior abdominal wall circumferentially with 4 interrupted 2-0 silk stitches. [place]'s are placed in either side of the fascia for retraction. The fascia was closed with 2 separate #1 non-looped PDS running stitches meeting in the middle. The subcutaneous tissue was irrigated with sterile saline. The subcutaneous tissue was reapproximated with 3-0 Vicryl interrupted stitches and the skin was closed with yessica. 4 x 4 gauze and Medipore tape were applied as a midline dressing. A 3-0 Vicryl stitch was placed through the bumper and tied to the skin to help secure number. One drain sponge was placed beneath the bumper, which was snug against the skin. All lap and instrument counts are correct at the end of the case. The patient tolerated the procedure well. The patient was awoken by anesthesia and the operating suite and extubated without incident. He was taken to PACU in stable condition. A chest x-ray will be obtained soon.
[2017-11-16] MEDS: Ipratropium/Albuterol Neb 3 ML IH SCH (22:22)
[2017-11-17] MEDS: *HR* Metoprolol 5 MG/5 ML VIAL IVP SCH ×4 (00:26→17:12)
[2017-11-17] MEDS: Metoclopramide 10 MG/2 ML VIAL IVP SCH ×5 (00:26→23:55)
[2017-11-17] MEDS: Ringers Solution, Lactated 1,000 ML IVC SCH ×2 (00:34→14:23)
[2017-11-17] MEDS: Ipratropium/Albuterol Neb 3 ML IH SCH ×4 (03:45→21:39)
[2017-11-17] MEDS: Pantoprazole 40 MG VIAL IVP SCH ×2 (05:59→17:12)
[2017-11-17 06:15] LABS: Basophils % 0.2 %; Eosinophils % 0.1 %; Hematocrit 40.9 % (37.5-50.1); Hemoglobin 13.7 g/dL (12.9-16.9); Immature Granulocytes % 0.3 % (0-4); Lymphocytes # 2.1 K/mcL (0.6-4.6); Lymphocytes % 12.3 %; Mean Corpuscular HGB Conc 33.5 g/dL (31.6-35.5); Mean Corpuscular Hemoglobin 29.6 pg (28.0-33.3); Mean Corpuscular Volume 88.3 fL (83.0-100.0); Mean Platelet Volume 9.9 fL (9.4-12.4); Neutrophils # 14.1 K/mcL (1.6-8.9); Platelet Count 272 K/mcL (140-400); Red Blood Count 4.63 M/mcL (4.19-5.50); Red Cell Distribution Width 13.2 % (11.5-14.5); Segmented Neutrophils % 81.1 %
[2017-11-17 06:38] LABS: BUN/Creatinine Ratio 13 (6-26); Blood Urea Nitrogen 13 mg/dL (6-20); Calcium 9.3 mg/dL (8.6-10.3); Carbon Dioxide 23 mEq/L (23-29); Chloride 104 mEq/L (98-107); Glucose 107 mg/dL (70-105); Osmolality,Calculated 283 (280-300); Potassium 3.9 mEq/L (3.5-5.1); Sodium 136 mEq/L (136-145); eGFR For Non-African Americans > 60 (> 60)
--- NOTE | 2017-11-17 10:53 | General Surgery Progress Note ---
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 ) Objective Vital Signs - Last 8 Hours Temp Pulse Resp BP Pulse Ox 11/17/17 06:57 98.7 F 80 16 145/83 93 11/17/17 03:54 98.7 F 96 15 132/80 93 11/17/17 03:45 16 94 Intake and Output 11/16/17 11/17/17 11/17/17 23:59 07:59 15:59 Intake Total 0 / 0 1000 / 1000 0 / 0 Output Total 0 / 0 200 / 200 Balance 0 / 0 800 / 800 0 / 0 Intake: IV Fluids 1000 / 1000 Lactated Ringers 1,000 ML @ 75 1000 / 1000 mls/hr IVC .[id number] [facility] Rx#: [id number] Oral 0 / 0 0 / 0 0 / 0 Output: Urine 0 / 0 200 / 200 Other: Meal NPO Percent of Meal Consumed 0% Weight 153.3 kg Blood Glucose* 104 Patient Weight 11/17/17 23:59 Weight 153.3 kg - General physical appearance well developed, well nourished, no distress - Respiratory normal expansion, normal respiratory effort, clear to auscultation - Cardiovascular Cardiovascular exam: Present: RRR, no murmurs/rubs/gallops - Abdomen Abdomen: Present: bowel sounds present, soft, non tender - Incision Incision: Present: clean and dry, intact - Labs 11/17/17 05:50 11/17/17 05:50 Diabetes panel 11/17/17 Range/Units 05:50 Sodium 136 (136-145) mEq/L Potassium 3.9 (3.5-5.1) mEq/L Chloride 104 (98-107) mEq/L Carbon Dioxide 23 (23-29) mEq/L BUN 13 (6-20) mg/dL Creatinine 1.03 (0.70-1.30) mg/dL Glucose 107 H (70-105) mg/dL Calcium 9.3 (8.6-10.3) mg/dL Calcium panel 11/17/17 Range/Units 05:50 Calcium 9.3 (8.6-10.3) mg/dL Pituitary panel 11/17/17 Range/Units 05:50 Sodium 136 (136-145) mEq/L Potassium 3.9 (3.5-5.1) mEq/L Chloride 104 (98-107) mEq/L Carbon Dioxide 23 (23-29) mEq/L BUN 13 (6-20) mg/dL Creatinine 1.03 (0.70-1.30) mg/dL Glucose 107 H (70-105) mg/dL Calcium 9.3 (8.6-10.3) mg/dL Adrenal panel 11/17/17 Range/Units 05:50 Sodium 136 (136-145) mEq/L Potassium 3.9 (3.5-5.1) mEq/L Chloride 104 (98-107) mEq/L Carbon Dioxide 23 (23-29) mEq/L BUN 13 (6-20) mg/dL Creatinine 1.03 (0.70-1.30) mg/dL Glucose 107 H (70-105) mg/dL Calcium 9.3 (8.6-10.3) mg/dL - VTE Documentation of Mechanical Device: Intermittent pneumatic compression device Consult Discharge Plan - Plan Referrals: Qasim Rodriguez MD [Partnered Physician] - <Stefanie Winston - Last Filed: 11/18/17 18:05> Date of Encounter: 11/18/17 - Assessment and Plan (1) Esophageal obstruction Current Visit: Yes Status: Acute (2) 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 Current Visit: Yes Status: Acute tube feeds per nutrition prn pain control ok to dc from surgery standpoint when medically stable and able to manage his tube feeds (3) Morbid obesity with BMI of 45.0-49.9, adult Current Visit: Yes Status: Chronic Subjective Patient reports: no new complaints, feels better, still having pain, pain is less, no flatus, bowel movement Objective Vital Signs - Last 8 Hours Temp Pulse Resp BP Pulse Ox 11/18/17 16:28 18 91 11/18/17 15:40 98 F 92 18 146/87 91 11/18/17 11:21 98.1 F 83 16 131/81 94 11/18/17 10:21 18 95 Intake and Output 11/18/17 11/18/17 11/18/17 07:59 15:59 23:59 Intake Total 1000 / 1000 500 / 500 Output Total 150 / 150 600 / 600 Balance 850 / 850 -100 / -100 Intake: IV Fluids 1000 / 1000 Lactated Ringers 1,000 ML @ 75 1000 / 1000 mls/hr IVC .[id number] [facility] Rx#: [id number] Oral 0 / 0 0 / 0 Free Water Intake Amount 500 / 500 Output: Urine 150 / 150 600 / 600 Other: Stool Size Small Stool Consistency liquid Stool Color Brown # Voids 1 # Bowel Movements 2 Weight 153.3 kg Blood Glucose* 176 118 124 Patient Weight 11/18/17 23:59 Weight 153.3 kg - General physical appearance well developed, well nourished, no distress - Eyes normal ocular movement - ENT normal mucosa, normocephalic - Neck Neck exam: trachea midline - Respiratory normal expansion, normal respiratory effort - Cardiovascular Cardiovascular exam: Present: RRR - Abdomen Abdomen: Present: bowel sounds present, soft, tender - Incision Incision: Present: clean and dry, intact - Integumentary no growths - Neurologic CN 2-12 grossly intact - Musculoskeletal normal gait, normal posture - Psychiatric oriented to time, oriented to person, oriented to place, speech is normal, memory intact - Labs 11/18/17 06:13 11/18/17 06:13 Diabetes panel 11/18/17 Range/Units 06:13 Sodium 137 (136-145) mEq/L Potassium 3.6 (3.5-5.1) mEq/L Chloride 104 (98-107) mEq/L Carbon Dioxide 27 (23-29) mEq/L BUN 14 (6-20) mg/dL Creatinine 0.92 (0.70-1.30) mg/dL Glucose 154 H (70-105) mg/dL Calcium 9.0 (8.6-10.3) mg/dL Calcium panel 11/18/17 11/18/17 Range/Units 06:13 06:13 Calcium 9.0 (8.6-10.3) mg/dL Phosphorus 2.5 L (2.7-4.5) mg/dL Pituitary panel 11/18/17 Range/Units 06:13 Sodium 137 (136-145) mEq/L Potassium 3.6 (3.5-5.1) mEq/L Chloride 104 (98-107) mEq/L Carbon Dioxide 27 (23-29) mEq/L BUN 14 (6-20) mg/dL Creatinine 0.92 (0.70-1.30) mg/dL Glucose 154 H (70-105) mg/dL Calcium 9.0 (8.6-10.3) mg/dL Adrenal panel 11/18/17 Range/Units 06:13 Sodium 137 (136-145) mEq/L Potassium 3.6 (3.5-5.1) mEq/L Chloride 104 (98-107) mEq/L Carbon Dioxide 27 (23-29) mEq/L BUN 14 (6-20) mg/dL Creatinine 0.92 (0.70-1.30) mg/dL Glucose 154 H (70-105) mg/dL Calcium 9.0 (8.6-10.3) mg/dL - Attending Attestation I examined this patient and my medical decision-making was reviewed with the Resident Physician. I agree with the documented findings, disposition and treatment plan as described except to the extent set forth below.
--- NOTE | 2017-11-17 14:28 | Internal Med Progress Note ---
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 Current Visit: Yes Status: Acute Assessment and plan: The patient is newly diagnosed ca esophagus at lower end of esophagus G- Tube was placed yesterday for feeding, as he has dysphagia for solid food and regurgitation of fluid We are working on it (2) Hypertension Current Visit: Yes Status: Chronic Assessment and plan: He is known case of HTN His latest BP is 131/85 He is on Lisinopril 10 mg OD We are monitoring his BP Qualifiers: Hypertension type: essential hypertension Qualified Code(s): I10 - Essential (primary) hypertension (3) Aspiration into airway Current Visit: Yes Status: Acute Assessment and plan: He has h/o aspiration after Surgery His Xray is negative for aspiration We are closely monitoring for development of sepsis/ pneumonia Qualifiers: Encounter type: initial encounter Qualified Code(s): T17.908A - Unspecified foreign body in respiratory tract, part unspecified causing other injury, initial encounter - Subjective Interval history: Today is 4th DOA.He is 57 year old male known case of GERD and hypertension who presented to [facility] on 11/14 as a direct admit from GI after endoscopy demonstrated a near obstructing tumor in the lower tend of esophagus. He was minimally symptomatic since end of July and more symptomatic since October. Initially he had swallowing difficulty especially solid food . Patient noted that whenever he consumed solid food, he would get stuck in his throat and develop an discomfort in the upper third of his chest before spitting his food back up. He presented to his primary care provider on 09/23/2017 , who referred him to GI for further workup. UGI endoscopy was performed on 11/14 and showed : Large, ulcerating mass with no bleeding and no stigmata in the lower third of the esophagus, near obstructing, circumferential. Biopsies were taken , and patient was admitted to the hospital per the recommendations of GI for further management. He reports that this progressively got worse, he has lost approximately 30 pounds in a few months. He states that he feels thirsty right now. He denies having any abdominal pain, nausea, vomiting, fever, chills, fatigue, hematemesis, or chest pain. Patient had G- tube placed yesterday and started feeding . After Surgery he has had vomiting , but denies apiration. He is hemodynamically stable today : BP 144/83 tem 98.7F , pul 87 sat 93% Xray chest shows no evidence of aspiration , but mild atelectasis in right lower zone. CT abdomen and Chest: Lower esophageal mass, enlarged mediastinal lymph nodes, multiple hepatic cyst and irregular border, Left Nephrolithiasis without obstruction - Constitutional Vitals: Temp Pulse Resp BP Pulse Ox 98.4 F 87 16 144/83 93 11/17/17 11:11 11/17/17 11:11 11/17/17 11:11 11/17/17 11:11 11/17/17 11:11 General appearance: Present: cooperative, A&O X 3, morbidly obese, no acute distress, answers questions appropriately Exam: Oriented to TPP, not in distress , cooperative - Head Head exam: Present: atraumatic, normal inspection, normocephalic - Neck Neck exam general surgery: Present: full ROM, normal inspection, supple Additional comments: Supple, no JVD - Respiratory Additional comments: Normal air entry both sides, normal chest expansion, no assory muscle working for beathing ,no rales or rhonchi - Cardiovascular Additional comments: Normal rate and rhythm, S1S2 normal , no murmur, rubs - GI/Abdominal Additional comments: Soft, no rigidity , no guarding , non distended, BS +, no organomegaly - Extremities Exam Additional comments: No peripheral edema, no calf swelling - Neurological Exam Neurological exam: Present: alert, oriented X3, reflexes normal, no focal deficits Internal Medicine: Result - Labs CBC & Chem 7: 11/17/17 05:50 11/17/17 05:50 Labs: Short CBC 11/17/17 Range/Units 05:50 WBC 17.4 H D (4.3-11.1) K/mcL Hgb 13.7 (12.9-16.9) g/dL Hct 40.9 (37.5-50.1) % Plt Count 272 (140-400) K/mcL Neutrophils # 14.1 H (1.6-8.9) K/mcL BMP 11/17/17 05:50 Sodium 136 Potassium 3.9 Chloride 104 Carbon Dioxide 23 BUN 13 Creatinine 1.03 Glucose 107 H Calcium 9.3 - ABG Interpretation ABG results: PT/INR, D-dimer PT 13.1 Seconds (9.4-12.1) H 11/16/17 04:00 - VTE Documentation of Mechanical Device: Intermittent pneumatic compression device Consult Discharge Plan - Plan Referrals: Qasim Rodriguez MD [Partnered Physician] - <Carlos Pleitez - Last Filed: 11/17/17 17:56> Date of Encounter: 11/17/17 - Assessment and plan (1) Aspiration into airway Current Visit: Yes Status: Acute Qualifiers: Encounter type: subsequent encounter Qualified Code(s): T17.908D - Unspecified foreign body in respiratory tract, part unspecified causing other injury, subsequent encounter (2) Esophageal obstruction Current Visit: Yes Status: Acute (3) 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9) g/dL Hct 40.9 (37.5-50.1) % Plt Count 272 (140-400) K/mcL Neutrophils # 14.1 H (1.6-8.9) K/mcL BMP 11/17/17 05:50 Sodium 136 Potassium 3.9 Chloride 104 Carbon Dioxide 23 BUN 13 Creatinine 1.03 Glucose 107 H Calcium 9.3 - ABG Interpretation ABG results: PT/INR, D-dimer PT 13.1 Seconds (9.4-12.1) H 11/16/17 04:00 - Attending Attestation I examined this patient and my medical decision-making was reviewed with the Resident Physician on 11/17/17. I agree with the documented findings, disposition and treatment plan as described except to the extent set forth below. Mr Martinez is currently in observation for esophageal obstruction due to mass. He remains moderate to high risk. Mr Martinez is doing OK. Pain is OK. He is sitting up on edge of bed. To start tube feeds today. says he has a lot of congestion in his chest and nose. No fever or chills. Some cough. Exam alert Comfortable Mucus membranes dry Heart reg Lungs clear Abd soft No edema I/P 1. Esophageal obstruction due to mass - G tube placed yesterday. Tube feeds to start today. 2. Change meds to G tube 3. ? aspiration - WBC high and he is coughing - start abx. Further diagnoses and plan as above.
--- NOTE | 2017-11-17 15:38 | Oncology Inp Progress Note ---
Date of Encounter: 11/17/17 Time of Encounter: 15:36 (1) Esophageal obstruction Current Visit: Yes Status: Acute Assessment and plan: s/p PEG placement. IUf he can be discharged tomorrow pending good tolerance of tube feed that could potenitally facilitate arrangement for PET scan this friday. 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 PET scan will help evaluate this impression. (3) Morbid obesity with BMI of 45.0-49.9, adult Current Visit: Yes Status: Chronic Assessment and plan: will be getting nutrition via PEG tube until esophageal obstructiuon improves with antineoplastic therapy. Oncology: Subj Interval history: He had his PEG tube placed yesterday. He has no major complaionts at the moment. They have flushed the tube with water and he tolerated that without difficutly. PLan is to do continuous feeding over night and then bolus feeding tomorrow and then discharge soon afterwards. They had questions regarding the timing of his PET scan and his f/u care. - Constitutional Vitals: Vital Signs Temp Pulse Resp BP Pulse Ox 11/17/17 15:23 98.6 F 81 16 145/89 91 11/17/17 11:11 98.4 F 87 16 144/83 93 11/17/17 10:45 16 91 11/17/17 06:57 98.7 F 80 16 145/83 93 11/17/17 03:54 98.7 F 96 15 132/80 93 11/17/17 03:45 16 94 11/17/17 00:55 98.5 F 82 17 133/74 93 11/16/17 22:22 18 93 11/16/17 18:26 99.2 F 100 16 128/84 90 11/16/17 17:07 99.1 F 100 16 133/84 90 Intake and Output 11/17/17 11/17/17 11/17/17 00:59 08:59 16:59 Intake Total 1000 / 1000 0 / 0 1000 / 1000 Output Total 200 / 200 0 / 0 500 / 500 Balance 800 / 800 0 / 0 500 / 500 Intake: IV Fluids 1000 / 1000 1000 / 1000 Lactated Ringers 1,000 ML @ 75 1000 / 1000 1000 / 1000 mls/hr IVC .[id number] [facility] Rx#: [id number] Oral 0 / 0 0 / 0 0 / 0 Output: Urine 200 / 200 0 / 0 500 / 500 Other: Meal NPO Percent of Meal Consumed 0% Weight 153.3 kg Blood Glucose* 117 104 100 Patient Weight 11/18/17 00:59 Weight 153.3 kg - Eye Eye exam: Present: EOMI - Neck Neck exam: Present: normal inspection - Respiratory Respiratory exam: Absent: respiratory distress, stridor, tachypnea - Cardiovascular Cardiovascular exam: Present: RRR - GI/Abdominal GI/Abdominal exam: Present: soft - Neurological Exam Neurological exam: Present: alert, oriented X3 Oncology: Obj Data - Labs CBC & Chem 7: 11/17/17 05:50 11/17/17 05:50 Labs: Laboratory Results - last 24 hr 11/16/17 11/17/17 11/17/17 05:38 00:02 05:29 WBC RBC Hgb Hct MCV MCH MCHC RDW Plt Count MPV Immature Gran % Seg Neutrophils % Lymphocytes % Monocytes % Eosinophils % Basophils % Neutrophils # Lymphocytes # Monocytes # Eosinophils # Basophils # Sodium Potassium Chloride Carbon Dioxide BUN Creatinine Est GFR ( Amer) Est GFR (Non-Af Amer) BUN/Creatinine Ratio Glucose POC Glucose 80 117 H 104 H Calculated Osmolality Calcium 11/17/17 11/17/17 11/17/17 05:50 05:50 11:13 WBC 17.4 H D RBC 4.63 Hgb 13.7 Hct 40.9 MCV 88.3 MCH 29.6 MCHC 33.5 RDW 13.2 Plt Count 272 MPV 9.9 Immature Gran % 0.3 Seg Neutrophils % 81.1 Lymphocytes % 12.3 Monocytes % 6.0 Eosinophils % 0.1 Basophils % 0.2 Neutrophils # 14.1 H Lymphocytes # 2.1 Monocytes # 1.0 Eosinophils # 0.0 Basophils # 0.0 Sodium 136 Potassium 3.9 Chloride 104 Carbon Dioxide 23 BUN 13 Creatinine 1.03 Est GFR ( Amer) > 60 Est GFR (Non-Af Amer) > 60 BUN/Creatinine Ratio 13 Glucose 107 H POC Glucose 100 H Calculated Osmolality 283 Calcium 9.3 - ABG Interpretation ABG results: PT/INR, D-dimer PT 13.1 Seconds (9.4-12.1) H 11/16/17 04:00 Consult Discharge Plan - Plan Referrals: Qasim Rodriguez MD [Partnered Physician] - Inpatient Charges Provider: Dr. Mega Neil Follow Up: [id number]
[2017-11-17] MEDS: Levofloxacin 750 MG/150 ML 750 MG/150 ML BAG IVPB SCH (18:54)
[2017-11-17] MEDS: Fluticasone Propionate Nasal 50 MCG/SPRAY BOTTLE NS SCH (19:00)
[2017-11-18] MEDS: Ipratropium/Albuterol Neb 3 ML IH SCH ×4 (03:44→22:08)
[2017-11-18] MEDS: Metoclopramide 10 MG/2 ML VIAL IVP SCH (06:17)
[2017-11-18] MEDS: Ringers Solution, Lactated 1,000 ML IVC SCH (06:25)
[2017-11-18 06:29] LABS: Basophils # 0.1 K/mcL (0.0-0.2); Basophils % 0.5 %; Eosinophils # 0.1 K/mcL (0.0-0.6); Hematocrit 37.7 % (37.5-50.1); Hemoglobin 12.7 g/dL (12.9-16.9); Immature Granulocytes % 0.6 % (0-4); Lymphocytes # 1.6 K/mcL (0.6-4.6); Lymphocytes % 12.4 %; Mean Corpuscular HGB Conc 33.7 g/dL (31.6-35.5); Mean Corpuscular Hemoglobin 29.2 pg (28.0-33.3); Mean Corpuscular Volume 86.7 fL (83.0-100.0); Mean Platelet Volume 9.4 fL (9.4-12.4); Monocytes # 0.8 K/mcL (0.0-1.3); Monocytes % 6.5 %; Neutrophils # 9.9 K/mcL (1.6-8.9); Platelet Count 253 K/mcL (140-400); Red Blood Count 4.35 M/mcL (4.19-5.50); Red Cell Distribution Width 13.4 % (11.5-14.5)
[2017-11-18 06:50] LABS: Magnesium 1.8 mg/dL (1.6-2.6); Phosphorous 2.5 mg/dL (2.7-4.5)
[2017-11-18 06:52] LABS: BUN/Creatinine Ratio 15 (6-26); Blood Urea Nitrogen 14 mg/dL (6-20); Carbon Dioxide 27 mEq/L (23-29); Chloride 104 mEq/L (98-107); Glucose 154 mg/dL (70-105); Osmolality,Calculated 288 (280-300); Potassium 3.6 mEq/L (3.5-5.1); Sodium 137 mEq/L (136-145); eGFR For Non-African Americans > 60 (> 60)
[2017-11-18] MEDS: Levofloxacin 750 MG/150 ML 750 MG/150 ML BAG IVPB SCH (09:33)
[2017-11-18] MEDS: Fluticasone Propionate Nasal 50 MCG/SPRAY BOTTLE NS SCH (09:36)
--- NOTE | 2017-11-18 10:34 | Internal Med Progress Note ---
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 He started PEG tube feeding and tolerating well. PET scan will determine status of distant metastasis Mediastinal LNs are enlarged (2) Hypertension Current Visit: Yes Status: Chronic Assessment and plan: He is known case of HTN His latest BP is 122/75 He is on Lisinopril 10 mg OD We are monitoring his BP Qualifiers: Hypertension type: essential hypertension Qualified Code(s): I10 - Essential (primary) hypertension (3) Aspiration into airway Current Visit: Yes Status: Acute Assessment and plan: He has h/o aspiration after Surgery His Xray is negative for aspiration We are closely monitoring for development of sepsis/ pneumonia We started Levaquin for suspected foci of infection ( WBC count was high, atectectasis in L L zone of lung) Qualifiers: Encounter type: subsequent encounter Qualified Code(s): T17.908D - Unspecified foreign body in respiratory tract, part unspecified causing other injury, subsequent encounter - Subjective Interval history: Today is 5th DOA.He is 57 year old male known case of GERD and hypertension who presented to [facility] on 11/14 as a direct admit from GI after endoscopy demonstrated a near obstructing tumor in the lower end of esophagus. He was minimally symptomatic since end of July and more symptomatic since October. Initially he has had swallowing difficulty especially solid food . Patient noted that whenever he consumed solid food, he would get stuck in his throat and develop discomfort in the upper third of his chest before spitting his food back up. He had presented to his primary care provider on 09/23/2017 , who referred him to GI for further workup. UGI endoscopy was performed on 11/14 and showed : Large, ulcerating mass with no bleeding and in the lower third of the esophagus, near obstructing, circumferential. Biopsies were taken, and patient was admitted to the hospital per the recommendations of GI for further management. He reports that this progressively got worse, he has lost approximately 30 pounds in a few months. He states that he feels thirsty right now. He denies having any abdominal pain, nausea, vomiting, fever, chills, fatigue, hematemesis, or chest pain. Patient had G- tube placed on 11/16 . After Surgery he has had vomiting , but denies apiration. He is hemodynamically stable today : BP 122/75 tem 98.2F , pul 92 sat 95%. His TLC 12.5 , Na 137, K 3.6 Glucose 154 , BUN 14, creatinine 0.92.Xray chest shows no evidence of aspiration , but mild atelectasis in right lower zone. CT abdomen and Chest: Lower esophageal mass, enlarged mediastinal lymph nodes may be metastatic, multiple hepatic cyst and irregular border, Left Nephrolithiasis without obstruction. He is on levaquin IV since yesterday. Today he is feeling better , he already started PEG feeding , no more fresh complaints , no fever, cough, nausea vomiting - Constitutional Vitals: Temp Pulse Resp BP Pulse Ox 98.2 F 92 16 122/75 95 11/18/17 06:51 11/18/17 06:51 11/18/17 06:51 11/18/17 06:51 11/18/17 06:51 General appearance: Present: cooperative, A&O X 3, morbidly obese, pleasant, no acute distress, answers questions appropriately Exam: Oriented to TPP, not in distress , cooperative - Head Head exam: Present: normal inspection, normocephalic - Neck Additional comments: Supple and no JVD - Respiratory Additional comments: Normal chest expansion both sides, equal air entry, no rales and creps - Cardiovascular Additional comments: Normal rate and rhythm, normal S1S2 , no rub, no murmur or other added sound - GI/Abdominal Additional comments: Soft ,warm , minimally distended, no rigidity and guarding, no organomegaly , PEG tube in situ, - Extremities Exam Additional comments: No calf swelling, no peripheral edema Internal Medicine: Result - Labs CBC & Chem 7: 11/18/17 06:13 11/18/17 06:13 Labs: Short CBC 11/18/17 Range/Units 06:13 WBC 12.5 H (4.3-11.1) K/mcL Hgb 12.7 L (12.9-16.9) g/dL Hct 37.7 (37.5-50.1) % Plt Count 253 (140-400) K/mcL Neutrophils # 9.9 H (1.6-8.9) K/mcL BMP 11/18/17 06:13 Sodium 137 Potassium 3.6 Chloride 104 Carbon Dioxide 27 BUN 14 Creatinine 0.92 Glucose 154 H Calcium 9.0 - ABG Interpretation ABG results: PT/INR, D-dimer PT 13.1 Seconds (9.4-12.1) H 11/16/17 04:00 - VTE Documentation of Mechanical Device: Intermittent pneumatic compression device Consult Discharge Plan - Plan Referrals: Qasim Rodriguez MD [Partnered Physician] - <Carlos Pleitez - Last Filed: 11/18/17 18:02> Date of Encounter: 11/18/17 - Assessment and plan (1) Aspiration into airway Current Visit: Yes Status: Acute Qualifiers: Encounter type: subsequent encounter Qualified Code(s): T17.908D - Unspecified foreign body in respiratory tract, part unspecified causing other injury, subsequent encounter (2) Esophageal obstruction Current Visit: Yes Status: Acute (3) 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 Current Visit: Yes Status: Acute (4) Hypertension Current Visit: Yes Status: Chronic Qualifiers: Hypertension type: essential hypertension Qualified Code(s): I10 - Essential (primary) hypertension (5) Morbid obesity with BMI of 45.0-49.9, adult Current Visit: Yes Status: Chronic (6) Hypophosphatemia Current Visit: Yes Status: Acute - Constitutional Vitals: Temp Pulse Resp BP Pulse Ox 98 F 92 18 146/87 91 11/18/17 15:40 11/18/17 15:40 11/18/17 16:28 11/18/17 15:40 11/18/17 16:28 Internal Medicine: Result - Labs CBC & Chem 7: 11/18/17 06:13 11/18/17 06:13 Labs: Short CBC 11/18/17 Range/Units 06:13 WBC 12.5 H (4.3-11.1) K/mcL Hgb 12.7 L (12.9-16.9) g/dL Hct 37.7 (37.5-50.1) % Plt Count 253 (140-400) K/mcL Neutrophils # 9.9 H (1.6-8.9) K/mcL BMP 11/18/17 06:13 Sodium 137 Potassium 3.6 Chloride 104 Carbon Dioxide 27 BUN 14 Creatinine 0.92 Glucose 154 H Calcium 9.0 - ABG Interpretation ABG results: PT/INR, D-dimer PT 13.1 Seconds (9.4-12.1) H 11/16/17 04:00 - Attending Attestation I examined this patient and my medical decision-making was reviewed with the Resident Physician on 11/18/17. I agree with the documented findings, disposition and treatment plan as described except to the extent set forth below. Mr Martinez is currently in observation for esophageal obstruction due to mass. He remains moderate to high risk. Mr Martinez is doing OK. He has started tube feeds and has moved to bolus feeds today. No fever or chills. No issues with pain. Exam Alert Comfortable Mucus membranes dry Heart reg No wheeze No edema Abd soft I/P 1. Esophageal mass 2. Tube feeds started 3. Complete 5 days of Levaquin for aspiration Further diagnoses and plan as above.
[2017-11-19] MEDS: Ipratropium/Albuterol Neb 3 ML IH SCH ×3 (03:54→15:26)
[2017-11-19] MEDS: Levofloxacin 750 MG/150 ML 750 MG/150 ML BAG IVPB SCH (08:13)
[2017-11-19] MEDS: Fluticasone Propionate Nasal 50 MCG/SPRAY BOTTLE NS SCH (08:14)
[2017-11-19 08:23] LABS: Estimated Average Glucose 120 mg/dl; Hemoglobin A1C 5.8 %
--- NOTE | 2017-11-19 10:28 | Internal Med Progress Note ---
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 He started PEG tube feeding and tolerating well. PET scan will determine status of distant metastasis Mediastinal and abdominal LNs are enlarged / ? metastatic (2) Hypertension Status: Chronic Assessment and plan: He is known case of HTN His latest BP is 153/93 and increasing tendency during late afternoon and night time. He is on Metoprolol 25 Mg BD and palnning to add Norvas We are monitoring his BP Qualifiers: Hypertension type: essential hypertension Qualified Code(s): I10 - Essential (primary) hypertension (3) Aspiration into airway Status: Resolved Assessment and plan: He has h/o aspiration after Surgery His Xray is negative for aspiration We are closely monitoring for development of sepsis/ pneumonia We started Levaquin X day 3rd today for suspected foci of infection ( WBC count was high 12.5 , atectectasis in L L zone of lung) Qualifiers: Encounter type: subsequent encounter Qualified Code(s): T17.908D - Unspecified foreign body in respiratory tract, part unspecified causing other injury, subsequent encounter - Subjective Interval history: Today is 6th DOA.He is 57 year old male known case of GERD and hypertension who presented to [facility] on 11/14 as a direct admit from GI after endoscopy demonstrated a near obstructing tumor in the lower end of esophagus. He was minimally symptomatic since end of July and more symptomatic since October. Initially he has had swallowing difficulty especially solid food . Patient noted that whenever he consumed solid food, he would get stuck in his throat and develop discomfort in the upper third of his chest before spitting his food back up. He had presented to his primary care provider on 09/23/2017 , who referred him to GI for further workup. UGI endoscopy was performed on 11/14 and showed : Large, ulcerating mass with no bleeding and in the lower third of the esophagus, near obstructing, circumferential. Biopsies were taken, and patient was admitted to the hospital per the recommendations of GI for further management. He reports that this progressively got worse, he has lost approximately 30 pounds in a few months. He states that he feels thirsty right now. He denies having any abdominal pain, nausea, vomiting, fever, chills, fatigue, hematemesis, or chest pain. Patient had G- tube placed on 11/16 . After Surgery he has had vomiting , but denies aspiration. He is hemodynamically stable today : BP 150/86 tem 97.8 F , pul 86 sat 94%. His TLC 12.5 , Na 137, K 3.6 Glucose 154 HB1AC 5.8,, BUN 14, creatinine 0.92.Xray chest shows no evidence of aspiration , but mild atelectasis in right> left lower zone. CT abdomen and Chest: Lower esophageal mass, enlarged mediastinal lymph nodes may be metastatic, multiple hepatic cyst and irregular border, Left Nephrolithiasis without obstruction. He is on levaquin IV since 11/17. Today he is feeling alittle bit better , he already started PEG feeding , no fever, cough, nausea vomiting .He sates that he regurgitates frothy fluid especially after PEG tube feeding, it started from yesterday. He showed me the fluid he regurgitated , it was frothy , 4-5 ml in quantity , without blood or food material .The patient is symptomatically better and hemodynamically stable and , we are planning to discharge today with home healthcare previleges. - Constitutional Vitals: Temp Pulse Resp BP Pulse Ox 97.8 F 86 15 150/86 94 11/19/17 06:39 11/19/17 06:39 11/19/17 06:39 11/19/17 06:39 11/19/17 06:39 General appearance: Present: cooperative, A&O X 3, morbidly obese, pleasant, no acute distress, answers questions appropriately - Head Head exam: Present: normal inspection, normocephalic - Neck Neck exam general surgery: Present: full ROM, normal inspection, supple - Respiratory Additional comments: Normal chest expansion, normal air entry both sides, no rales and creps noted - Cardiovascular Additional comments: Normal rate and rhythm, S1 S2 normal , no murmur or any added sounds - GI/Abdominal Additional comments: Soft , warm , no organomegaly , no rigidity and tenderness, PEG tube in situ - Neurological Exam Neurological exam: Present: alert, oriented X3, reflexes normal, strengths equal and symetr throughout Internal Medicine: Result - Labs CBC & Chem 7: 11/18/17 06:13 11/18/17 06:13 - ABG Interpretation ABG results: PT/INR, D-dimer PT 13.1 Seconds (9.4-12.1) H 11/16/17 04:00 - VTE Documentation of Mechanical Device: Intermittent pneumatic compression device Consult Discharge Plan - Plan Additional Instructions: Follow up with oncology as arranged. Referrals: Qasim Rodriguez MD [Partnered Physician] - 11/25/17 2:45 pm Terrell Henry MD [Partnered Physician] - 11/25/17 9:00 am Prescriptions: Ondansetron [Zofran ODT] 8 mg SL Q4HR PRN #30 tab.rapdis PRN Reason: Nausea amLODIPine [Norvasc] 5 mg PO DAILY #30 tablet HYDROcodone/Acet 5/325 mg [[place] 5-325 mg] 1 tab PO Q4H PRN 5 Days #20 tab PRN Reason: Pain Of Port Access Lansoprazole [Prevacid] 30 mg GTUBE BIDAC #60 capsule. 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 Status: Acute (4) Hypertension Status: Chronic Qualifiers: Hypertension type: essential hypertension Qualified Code(s): I10 - Essential (primary) hypertension (5) Morbid obesity with BMI of 45.0-49.9, adult Status: Chronic (6) Hypophosphatemia Status: Resolved - Constitutional Vitals: Temp Pulse Resp BP Pulse Ox 97.9 F 80 18 153/93 96 11/19/17 10:49 11/19/17 10:49 11/19/17 15:26 11/19/17 10:49 11/19/17 15:26 Internal Medicine: Result - Labs CBC & Chem 7: 11/18/17 06:13 11/18/17 06:13 - ABG Interpretation ABG results: PT/INR, D-dimer PT 13.1 Seconds (9.4-12.1) H 11/16/17 04:00 - Attending Attestation Please see discharge summary of this date.
[2017-11-19 10:53] VITALS: BP 153/93
--- NOTE | 2017-11-19 12:08 | Discharge Summary ---
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 Status: Acute (2) Hypertension Status: Chronic Qualifiers: Hypertension type: essential hypertension Qualified Code(s): I10 - Essential (primary) hypertension (3) Aspiration into airway Status: Acute Qualifiers: Encounter type: subsequent encounter Qualified Code(s): T17.908D - Unspecified foreign body in respiratory tract, part unspecified causing other injury, subsequent encounter Hospital course: .He is 57 year old male known case of GERD and hypertension who presented to [facility] on 11/14/2017 as a direct admit from GI after endoscopy demonstrated a near obstructing tumor in the lower end of esophagus. He was minimally symptomatic since end of July and more symptomatic since October. Initially he has had swallowing difficulty especially with solid food . Patient noted that whenever he eat solid food, he would get stuck in his throat and develop discomfort in the upper third of his chest before spitting his food back up and it has been worse since October . He had presented to his primary care provider on 09/23/2017 , who referred him to GI for further workup. UGI endoscopy was performed on 11/14/2017 and showed : Large, ulcerating mass with no bleeding and in the lower third of the esophagus, near obstructing, circumferential. Biopsies were taken, and patient was admitted to the hospital per the recommendations of GI for further work up and management. He has lost approximately 30 pounds in a few months. . He denies having any abdominal pain , nausea, vomiting, fever, chills, fatigue, hematemesis, or chest pain. Patient had G- tube placed on 11/16/2017 . His recent work during his hospital stay : Xray chest shows no evidence of aspiration , but mild atelectasis in right> left lower zone. CT abdomen and Chest: Lower esophageal mass, enlarged mediastinal lymph nodes may be metastatic, multiple hepatic cyst and irregular border, Left Nephrolithiasis without obstruction He is stable today : BP 150/86 tem 97.8 F , pul 86/ minutes, sat 94%. His TLC 12.5 , Na 137, K 3.6 Glucose 154 ,HB1AC 5.8,, BUN 14, creatinine 0.92.. He has been treated with IV levaquin for last 3 days .He already started PEG feeding , no fever, cough, nausea vomiting .He states that he regurgitates frothy fluid especially after PEG tube feeding, it might be due to obstruction in distal oesophagus .We are discharging him today as he is hemoynamically stable and symptomatically better , he will continue PEG tube feeding at home and follow up with Oncologist with PET scan report . - Time Spent with Patient Total time spent providing and/or coordinating discharge services: - Discharge Medications Prescriptions: amLODIPine [Norvasc] 5 mg PO DAILY #30 tablet HYDROcodone/Acet 5/325 mg [Nora 5-325 mg] 1 tab PO Q4H PRN 5 Days #20 tab PRN Reason: Pain Of Port Access Lansoprazole [Prevacid] 30 mg GTUBE BIDAC #60 capsule. levoFLOXacin [Levaquin] 750 mg PO DAILY #2 tablet Metoprolol [Lopressor] 25 mg GTUBE BID #60 tablet Home Medications: Fluticasone Propionate Nasal [Flonase] 50 mcg NS DAILY bottle 11/19/17 [Rx] HYDROcodone/Acet 5/325 mg [Nora 5-325 mg] 1 tab PO Q4H PRN 5 Days #20 tab 11/19 [Rx] Lansoprazole [Prevacid] 30 mg GTUBE BIDAC #60 capsule. 11/19/17 [Rx] Metoprolol [Lopressor] 25 mg GTUBE BID #60 tablet 11/19/17 [Rx] amLODIPine [Norvasc] 5 mg PO DAILY #30 tablet 11/19/17 [Rx] levoFLOXacin [Levaquin] 750 mg PO DAILY #2 tablet 11/19/17 [Rx] Allergies/Adverse Reactions: 3 Allergy/AdvReac Type Severity Reaction Status Date / Time No Known Allergies Allergy Verified 11/14/17 17:27 Date of admission: 11/14/17 19:35 Primary care physician: PCP NONE Consults: 11/14/17 19:37 Consult to Oncology Hematology [CONS] Routine Consulting Provider: Terrell Henry Reason for Consult: Esophageal mass Time Notified: 19:35 Call Completed: Yes Consult to Surgery [CONS] Routine Consulting Provider: Stefanie Winston Reason for Consult: Esophageal mass Time Notified: 19:30 Call Completed: Yes 11/16/17 16:40 consult to spinner fixer [Consult to Nutrition] [CONS] Routine Comment: Consulting Provider: NUTRITION Reason for Dietary Consult: Tube Feed Start & Manage 11/17/17 12:17 Consult to Service Desk Technician [CONS] Routine Reason for SW Consult: Tube Feeding for home at discharge - Constitutional Vitals: Temp Pulse Resp BP Pulse Ox 97.9 F 80 14 153/93 94 11/19/17 10:49 11/19/17 10:49 11/19/17 10:49 11/19/17 10:49 11/19/17 10:49 General appearance: Present: cooperative, A&O X 3, morbidly obese, pleasant, no acute distress, answers questions appropriately Exam: Oriented to TPP, not in distress , cooperative - Neck Neck exam general surgery: Present: full ROM, normal inspection, supple - Respiratory Additional comments: Normal chest expansion, equal air entry , no rales and rhonchi noted - Cardiovascular Additional comments: Normal rate and rhythm, S1S2 normal, no murmur gallop or any added sound noted - GI/Abdominal Additional comments: Abdomen is soft , warm , no distension , rigidity and guarding ,no organomegaly , PEG tube in situ, no wound site infection - Extremities Exam Additional comments: No peripheral edema, no calf swelling - Neurological Exam Neurological exam: Present: normal gait, oriented X3, reflexes normal, strengths equal and symetr throughout - Psychiatric Psychiatric exam: Present: normal affect - Patient Status Disposition: Home Health Service Condition: Good - Discharge Instructions Follow Up With: Qasim Rodriguez MD [Partnered Physician] - 11/25/17 2:45 pm Terrell Henry MD [Partnered Physician] - 11/25/17 9:00 am Additional Instructions: Follow up with oncology as arranged. 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 Martinez is a 57 year old male Discharge discussed with: patient, family - Time Spent with Patient Total time spent providing and/or coordinating discharge services: 41min Date of admission: 11/14/17 19:35 Primary care physician: PCP NONE Consults: 11/14/17 19:37 Consult to Oncology Hematology [CONS] Routine Consulting Provider: Terrell Henry Reason for Consult: Esophageal mass Time Notified: 19:35 Call Completed: Yes Consult to Surgery [CONS] Routine Consulting Provider: Stefanie Winston Reason for Consult: Esophageal mass Time Notified: 19:30 Call Completed: Yes 11/16/17 16:40 consult to spinner fixer [Consult to Nutrition] [CONS] Routine Comment: Consulting Provider: NUTRITION Reason for Dietary Consult: Tube Feed Start & Manage 11/17/17 12:17 Consult to Service Desk Technician [CONS] Routine Reason for SW Consult: Tube Feeding for home at discharge Discharging clinician: Carlos Pleitez Anticipated date of discharge: 11/19/17 - Constitutional Vitals: Temp Pulse Resp BP Pulse Ox 97.9 F 80 14 153/93 94 11/19/17 10:49 11/19/17 10:49 11/19/17 10:49 11/19/17 10:49 11/19/17 10:49 - Patient Status Functional capacity at discharge: independent ambulation Overall status at discharge: patient is progressing back to baseline - Diet and Activity Activity: increase activity as tolerated Diet: other (Nothing by mouth. Tube feed: TwoCal HN 5 cans daily) - Attending Attestation I examined this patient and my medical decision-making was reviewed with the Resident Physician on 11/19/17. I agree with the documented findings, disposition and treatment plan as described except to the extent set forth below. Mr Martinez has been admitted for esophageal obstruction due to esophageal mass. He underwent G tube placement and was started on tube feeds. He was evaluated by oncology and arrangements made for follow up. Today he is afebrile and tolerating tube feeds. He is ready for discharge home. Exam alert Comfortable Mucus membranes dry Heart reg No wheeze abd soft No edema No rash Plan D/C home today Follow up as arranged.
--- NOTE | 2017-11-19 12:25 | Physician Discharge Referral ---
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 For more information, call the [place] Tobacco Quit Line at 4-761-BNUL-NOW. - Dressing/Wound Care Type of Dressing/Treatments w/Frequency: wash peg site with soap and water daily, apply 1 drain sponge beneath bumper, change daily and prn soilage Free water: 100ml every 6 hours and 50ml before and after tube feeding. - Diet/Nutrition Diet/Nutrition: List: Two Syed HN - 5 cans daily Free water - Activity Activity Orders: Up ad jules - Services Needed Following services are medically necessary services: Nursing - Transfer Medications Prescriptions: amLODIPine [Norvasc] 5 mg PO DAILY #30 tablet HYDROcodone/Acet 5/325 mg [[place] 5-325 mg] 1 tab PO Q4H PRN 5 Days #20 tab PRN Reason: Pain Of Port Access Lansoprazole [Prevacid] 30 mg GTUBE BIDAC #60 capsule. Metoprolol [Lopressor] 25 mg GTUBE BID #60 tablet Home Medications: Fluticasone Propionate Nasal [Flonase] 50 mcg NS DAILY bottle 11/19/17 [Rx] HYDROcodone/Acet 5/325 mg [[place] 5-325 mg] 1 tab PO Q4H PRN 5 Days #20 tab 11/19 [Rx] Lansoprazole [Prevacid] 30 mg GTUBE BIDAC #60 capsule. 11/19/17 [Rx] Metoprolol [Lopressor] 25 mg GTUBE BID #60 tablet 11/19/17 [Rx] amLODIPine [Norvasc] 5 mg PO DAILY #30 tablet 11/19/17 [Rx] levoFLOXacin [Levaquin] 750 mg PO DAILY #2 tablet 11/19/17 [Rx] Allergies/Adverse Reactions: 3 Allergy/AdvReac Type Severity Reaction Status Date / Time No Known Allergies Allergy Verified 11/14/17 17:27 Certification: Further, I certify that my clinical findings support that this patient is homebound (i.e. absences from home require considerable and taxing effort and are for medical reasons or mu-ism services or infrequently or short duration when for other reasons) because: Homebound Reason: Patient requires assistance of a person or device to safely leave home, Post-surgery restriction and or conditions limit ability to leave home Attestation: My signature below is to certify that this patient is under my care and that I, or nurse practitioner, or a physician's nurse's assistant working with me, has a face-to -face encounter with this patient.
== END 2017-11-19 18:11 | disposition home health service (06) | DRG 327 ==
LOC: 3ANU → SUATTDRO 19:35
PROVIDERS: ADMIT Internal Medicine; ATTEND Internal Medicine

== ENCOUNTER 2019-06-19 12:00 | Observation (INO) ==
[2019-06-19] MEDS ORDERED: *HR* FentaNYL (PF) 100 MCG/2 ML VIAL ONE (13:34)
[2019-06-19] MEDS ORDERED: 0.9 % Sodium Chloride 1,000 ML ONE ×2 (13:34→16:54)
[2019-06-19] MEDS ORDERED: Nitroglycerin 0.4 MG TAB.SUBL SL ONE ×2 (13:37→13:39)
[2019-06-19] MEDS ORDERED: 0.9 % Sodium Chloride 1,000 ML IVC ONE ×2 (13:39→18:15)
[2019-06-19] MEDS ORDERED: *HR* FentaNYL (PF) 100 MCG/2 ML VIAL IVP ONE (13:54)
[2019-06-19] MEDS ORDERED: Water for inj. (sterile) 20 ML IV ONE (15:33)
[2019-06-19] MEDS ORDERED: CefTRIAXone 1,000 MG VIAL ONE (15:33)
[2019-06-19] MEDS ORDERED: Azithromycin 500 MG VIAL ONE (15:33)
[2019-06-19] MEDS ORDERED: 0.9 % Sodium Chloride 250 ML ONE (15:33)
[2019-06-19] MEDS ORDERED: Azithromycin 500 MG in 0.9 % Sodium Chloride 250 ML IVPB ONE (15:35)
[2019-06-19] MEDS ORDERED: cefTRIAXone 1,000 MG in Water for inj. (sterile) 10 ML IVP ONE (15:35)
[2019-06-19] MEDS ORDERED: Ondansetron 4 MG/2 ML VIAL ONE (16:54)
[2019-06-19] MEDS: Ondansetron 4 MG/2 ML VIAL IVP PRN (16:56)
[2019-06-19] MEDS: Acetaminophen 325 MG TABLET PO PRN (16:56)
[2019-06-19] MEDS ORDERED: Acetaminophen 325 MG TABLET PO ONE (17:06)
[2019-06-19] MEDS ORDERED: Isovue-370 500 ML BOTTLE IVP ONE (17:27)
[2019-06-19] MEDS: 0.9 % Sodium Chloride 1,000 ML IVC SCH (19:00)
[2019-06-19] MEDS: *HR* Heparin 5,000 UNIT/ML VIAL SQ SCH (22:00)
[2019-06-19 23:47] LABS: Basophils % 0.4 %; Eosinophils # 0.2 K/mcL (0.0-0.6); Eosinophils % 2.1 %; Hematocrit 46.4 % (37.5-50.1); Hemoglobin 15.4 g/dL (12.9-16.9); Immature Granulocytes % 0.4 % (0-4); Lymphocytes # 1.1 K/mcL (0.6-4.6); Lymphocytes % 14.2 %; Mean Corpuscular HGB Conc 33.2 g/dL (31.6-35.5); Mean Corpuscular Hemoglobin 29.7 pg (28.0-33.3); Mean Corpuscular Volume 89.4 fL (83.0-100.0); Mean Platelet Volume 9.6 fL (9.4-12.4); Monocytes # 0.4 K/mcL (0.0-1.3); Neutrophils # 6.1 K/mcL (1.6-8.9); Platelet Count 163 K/mcL (140-400); Red Blood Count 5.19 M/mcL (4.19-5.50); Segmented Neutrophils % 77.9 %; White Blood Count 7.8 K/mcL (4.3-11.1)
[2019-06-20 00:30] LABS: BUN/Creatinine Ratio 13 (6-26); Blood Urea Nitrogen 12 mg/dL (6-20); Calcium 9.6 mg/dL (8.6-10.3); Carbon Dioxide 30 mEq/L (23-29); Chloride 100 mEq/L (98-107); Glucose 100 mg/dL (70-105); Lipase 7 Units/L (11-82); Magnesium 2.1 mg/dL (1.6-2.6); Osmolality,Calculated 280 (280-300); Potassium 4.5 mEq/L (3.5-5.1); Sodium 135 mEq/L (136-145); Troponin I < 0.03 ng/mL (< 0.04); eGFR For African Americans > 60 (> 60); eGFR For Non-African Americans > 60 (> 60)
[2019-06-20 01:28] LABS: Activated Partial Thrombo Time 29.9 Seconds (26.0-36.0); INR 1.1
[2019-06-20 03:11] LABS: Basophils % 0.4 %; Eosinophils % 0.3 %; Hematocrit 35.1 % (37.5-50.1); Hemoglobin 11.5 g/dL (12.9-16.9); Immature Granulocytes % 0.5 % (0-4); Lymphocytes # 1.3 K/mcL (0.6-4.6); Lymphocytes % 17.2 %; Mean Corpuscular HGB Conc 32.8 g/dL (31.6-35.5); Mean Corpuscular Hemoglobin 29.5 pg (28.0-33.3); Mean Platelet Volume 9.5 fL (9.4-12.4); Monocytes # 0.7 K/mcL (0.0-1.3); Neutrophils # 5.4 K/mcL (1.6-8.9); Platelet Count 118 K/mcL (140-400); Red Cell Distribution Width 15.9 % (11.5-14.5); Segmented Neutrophils % 72.6 %; White Blood Count 7.5 K/mcL (4.3-11.1)
[2019-06-20 03:27] LABS: BUN/Creatinine Ratio 15 (6-26); Blood Urea Nitrogen 14 mg/dL (6-20); Calcium 8.1 mg/dL (8.6-10.3); Carbon Dioxide 27 mEq/L (23-29); Chloride 105 mEq/L (98-107); Glucose 99 mg/dL (70-105); Osmolality,Calculated 283 (280-300); Potassium 3.7 mEq/L (3.5-5.1); Sodium 136 mEq/L (136-145); eGFR For African Americans > 60 (> 60); eGFR For Non-African Americans > 60 (> 60)
[2019-06-20] MEDS: Ondansetron 4 MG/2 ML VIAL IVP PRN (03:32)
[2019-06-20] MEDS: 0.9 % Sodium Chloride 1,000 ML IVC SCH ×3 (03:32→21:27)
[2019-06-20] MEDS: Simethicone 80 MG TAB.CHEW PO PRN ×3 (03:53→22:03)
[2019-06-20 04:08] LABS: Chol/HDL Ratio 3.5 (0-4.9); Cholesterol 122 mg/dL (< 200); HDL Cholesterol 35 mg/dL (40-59); LDL Cholesterol,Calculated 71 mg/dL (0-99); Triglycerides 81 mg/dL (< 150)
[2019-06-20] MEDS: *HR* Heparin 5,000 UNIT/ML VIAL SQ SCH ×3 (05:06→20:21)
[2019-06-20] MEDS: Sucralfate 1 GM TABLET PO SCH ×2 (07:19→15:46)
[2019-06-20] MEDS: cefTRIAXone 1,000 MG in Water for inj. (sterile) 10 ML IVP SCH (11:38)
[2019-06-20 12:37] LABS: Hematocrit 34.8 % (37.5-50.1); Hemoglobin 11.6 g/dL (12.9-16.9)
[2019-06-20] MEDS ORDERED: *HR* OxyCODONE Immed Rel 5 MG TABLET PO PRN (13:00)
[2019-06-20] MEDS: Azithromycin 500 MG in 0.9 % Sodium Chloride 250 ML IVPB SCH (15:45)
[2019-06-20] MEDS: Acetaminophen 325 MG TABLET PO PRN (15:46)
[2019-06-20] MEDS: *HR* Promethazine 25 MG/ML VIAL IVP PRN ×2 (16:00→22:03)
[2019-06-21] MEDS: Acetaminophen 325 MG TABLET PO PRN (00:09)
[2019-06-21] MEDS: *HR* Heparin 5,000 UNIT/ML VIAL SQ SCH ×3 (05:09→20:13)
[2019-06-21] MEDS: 0.9 % Sodium Chloride 1,000 ML IVC SCH (05:09)
[2019-06-21] MEDS: Sucralfate 1 GM TABLET PO SCH ×2 (06:44→14:50)
[2019-06-21] MEDS: cefTRIAXone 1,000 MG in Water for inj. (sterile) 10 ML IVP SCH (08:00)
[2019-06-21 08:43] LABS: Hemoglobin 12.9 g/dL (12.9-16.9); Red Cell Distribution Width 16.2 % (11.5-14.5)
[2019-06-21 08:45] LABS: Basophils % 0.5 %; Eosinophils # 0.1 K/mcL (0.0-0.6); Eosinophils % 1.6 %; Hematocrit 39.6 % (37.5-50.1); Immature Granulocytes % 1.1 % (0-4); Immature Platelets 3.1 % (1.1-6.1); Lymphocytes # 1.1 K/mcL (0.6-4.6); Lymphocytes % 19.5 %; Mean Corpuscular HGB Conc 32.6 g/dL (31.6-35.5); Mean Corpuscular Hemoglobin 29.4 pg (28.0-33.3); Mean Corpuscular Volume 90.2 fL (83.0-100.0); Monocytes # 0.7 K/mcL (0.0-1.3); Monocytes % 11.9 %; Neutrophils # 3.7 K/mcL (1.6-8.9); Platelet Count 145 K/mcL (140-400); Red Blood Count 4.39 M/mcL (4.19-5.50); Segmented Neutrophils % 65.4 %; White Blood Count 5.7 K/mcL (4.3-11.1)
[2019-06-21 09:03] LABS: BUN/Creatinine Ratio 13 (6-26); Blood Urea Nitrogen 11 mg/dL (6-20); Calcium 9.1 mg/dL (8.6-10.3); Carbon Dioxide 27 mEq/L (23-29); Chloride 104 mEq/L (98-107); Glucose 88 mg/dL (70-105); Osmolality,Calculated 283 (280-300); Potassium 3.5 mEq/L (3.5-5.1); Sodium 137 mEq/L (136-145); eGFR For African Americans > 60 (> 60); eGFR For Non-African Americans > 60 (> 60)
[2019-06-21] MEDS: Azithromycin 500 MG in 0.9 % Sodium Chloride 250 ML IVPB SCH (14:53)
[2019-06-21] MEDS: Ondansetron 4 MG/2 ML VIAL IVP PRN (15:29)
[2019-06-21] MEDS: Simethicone 80 MG TAB.CHEW PO PRN (22:14)
[2019-06-22 04:43] LABS: Hematocrit 32.7 % (37.5-50.1); Mean Corpuscular HGB Conc 34.3 g/dL (31.6-35.5); Mean Corpuscular Hemoglobin 30.3 pg (28.0-33.3); Mean Corpuscular Volume 88.4 fL (83.0-100.0); Mean Platelet Volume 9.6 fL (9.4-12.4); Platelet Count 137 K/mcL (140-400); Red Cell Distribution Width 15.9 % (11.5-14.5); White Blood Count 6.7 K/mcL (4.3-11.1)
[2019-06-22 04:46] LABS: Hemoglobin 11.2 g/dL (12.9-16.9)
[2019-06-22] MEDS: *HR* Heparin 5,000 UNIT/ML VIAL SQ SCH (06:31)
[2019-06-22] MEDS: Sucralfate 1 GM TABLET PO SCH (06:31)
[2019-06-22 06:55] VITALS: BP 128/88
== END 2019-06-22 10:40 | disposition other institution (70) ==
LOC: EMEROOARM 12:00 → 3ANU 12:00 → SUATTDRO 18:00
PROVIDERS: ADMIT Family Medicine; ATTEND Student in an Organized Health Care Education/Training Program

== ENCOUNTER 2020-06-03 15:01 | Inpatient (IN) ==
[2020-06-03 15:50] LABS: Basophils # 0.1 K/mcL (0.0-0.2); Basophils % 0.3 %; Eosinophils # 0.1 K/mcL (0.0-0.6); Eosinophils % 0.8 %; Hematocrit 39.5 % (37.5-50.1); Hemoglobin 13.5 g/dL (12.9-16.9); Immature Granulocytes % 1.4 % (0-4); Lymphocytes # 1.6 K/mcL (0.6-4.6); Lymphocytes % 11.4 %; Mean Corpuscular HGB Conc 34.2 g/dL (31.6-35.5); Mean Corpuscular Hemoglobin 31.5 pg (28.0-33.3); Mean Corpuscular Volume 92.1 fL (83.0-100.0); Mean Platelet Volume 8.8 fL (9.4-12.4); Monocytes # 0.6 K/mcL (0.0-1.3); Monocytes % 4.2 %; Neutrophils # 11.8 K/mcL (1.6-8.9); Platelet Count 284 K/mcL (140-400); Red Blood Count 4.29 M/mcL (4.19-5.50); Red Cell Distribution Width 14.4 % (11.5-14.5); Segmented Neutrophils % 81.9 %; White Blood Count 14.4 K/mcL (4.3-11.1)
[2020-06-03 15:58] LABS: INR 1.1
[2020-06-03 16:01] LABS: Activated Partial Thrombo Time 25.2 Seconds (26.0-36.0)
[2020-06-03 16:09] LABS: Bacteria,Urine Few per hpf (None-Few); Bilirubin,Urine Small (Negative); Blood,Urine Negative (Negative); Calcium Oxalate Crystals,Urine Present; Clarity,Urine Clear (Clear); Color,Urine Yellow (Yellow); Glucose,Urine (UA) Normal (Normal); Hyaline Casts,Urine Few per lpf (None Seen); Ketones,Urine 40 mg/dL (Negative); Leukocyte Esterase,Urine Negative (Negative); Mucus,Urine Many per lpf (None-Few); Nitrite,Urine Negative (Negative); Protein,Urine 50 mg/dL (Neg-Trace); Specific Gravity,Urine > 1.030 (1.010-1.025); Squamous Epithelial Cell,Urine Few per hpf (None-Few); WBC,Urine 0-3 per hpf (0-3)
[2020-06-03 16:10] LABS: Troponin I 0.12 ng/mL (< 0.04)
[2020-06-03 16:22] LABS: Alanine Aminotransferase 11 Units/L (7-52); Albumin 3.5 g/dL (3.5-5.7); Albumin/Globulin Ratio 1.3 (1.1-2.2); Alkaline Phosphatase 57 Units/L (34-104); Aspartate Amino Transferase 13 Units/L (13-39); BUN/Creatinine Ratio 26 (6-26); Bilirubin,Direct 0.1 mg/dL (0.0-0.2); Bilirubin,Indirect 0.6 mg/dL (0.0-1.0); Bilirubin,Total 0.7 mg/dL (0.3-1.0); Blood Urea Nitrogen 21 mg/dL (8-23); Carbon Dioxide 19 mEq/L (23-29); Chloride 109 mEq/L (98-107); Ethanol < 10 mg/dL (Less than 10); Globulin 2.7 g/dL (2.4-3.5); Glucose 113 mg/dL (70-105); Osmolality,Calculated 292 (280-300); Potassium 3.7 mEq/L (3.5-5.1); Sodium 139 mEq/L (136-145); Total Protein 6.2 g/dL (6.4-8.9); eGFR For African Americans > 60 (> 60); eGFR For Non-African Americans > 60 (> 60)
[2020-06-03 16:22] LABS: Amphetamine Screen,Urine Negative ng/mL (Cutoff=1000); Barbiturate Screen,Urine Negative ng/mL (Cutoff=200); Benzodiazepines Screen,Urine Negative ng/mL (Cutoff=200); Cannabinoid Screen,Urine Negative ng/mL (Cutoff = 50); Cocaine Screen,Urine Negative ng/mL (Cutoff= 300); Opiate Screen,Urine Negative ng/mL (Cutoff=300); Phencyclidine Screen,Urine Negative ng/mL (Cutoff=25)
[2020-06-03] MEDS ORDERED: Aspirin 325 MG TABLET PO ONE (16:54)
[2020-06-03] MEDS ORDERED: *HR* Heparin 5,000 UNIT/ML VIAL IVP ONE (16:54)
[2020-06-03] MEDS ORDERED: *HR* Heparin 5,000 UNIT/ML VIAL IVP PRN ×2 (16:54)
[2020-06-03] MEDS ORDERED: Ampicillin/Sulbactam 3,000 MG in 0.9 % Sodium Chloride Mini Bag 100 ML IVPB ONE (16:54)
[2020-06-03] MEDS ORDERED: Heparin 25,000UNIT/250ML 1/2NS 25,000 UNIT/250 ML IV.SOLN IVC SCH ×2 (17:00→17:45)
[2020-06-03 17:27] LABS: Hematocrit 37.4 % (37.5-50.1); Hemoglobin 12.7 g/dL (12.9-16.9); Mean Corpuscular Hemoglobin 31.1 pg (28.0-33.3); Mean Corpuscular Volume 91.4 fL (83.0-100.0); Mean Platelet Volume 8.7 fL (9.4-12.4); Platelet Count 233 K/mcL (140-400); Red Blood Count 4.09 M/mcL (4.19-5.50); Red Cell Distribution Width 14.3 % (11.5-14.5); White Blood Count 13.1 K/mcL (4.3-11.1)
[2020-06-03 17:36] LABS: Heparin anti-factor XA UFH < 0.04 IU/mL (0.30-0.70); INR 1.1; Prothrombin Time 12.4 Seconds (9.4-12.1)
[2020-06-03] MEDS ORDERED: 0.9 % Sodium Chloride 1,000 ML IVC ONE (18:20)
[2020-06-03] MEDS ORDERED: *HR* Promethazine 25 MG/ML VIAL IM PRN (19:35)
[2020-06-03] MEDS ORDERED: Ondansetron 4 MG/2 ML VIAL IVP PRN (19:35)
[2020-06-03] MEDS ORDERED: Naloxone 0.4 MG/ML INJ IVP PRN (19:35)
[2020-06-03] MEDS ORDERED: Fluticasone Propionate Nasal 50 MCG/SPRAY BOTTLE NS PRN (19:42)
[2020-06-04] MEDS: Ringers Solution, Lactated 1,000 ML IVC SCH ×3 (02:36→12:45)
[2020-06-04 02:44] LABS: Basophils # 0.1 K/mcL (0.0-0.2); Basophils % 0.4 %; Eosinophils # 0.1 K/mcL (0.0-0.6); Eosinophils % 0.5 %; Hematocrit 34.9 % (37.5-50.1); Hemoglobin 11.9 g/dL (12.9-16.9); Immature Granulocytes % 1.6 % (0-4); Lymphocytes # 1.8 K/mcL (0.6-4.6); Lymphocytes % 16.1 %; Mean Corpuscular HGB Conc 34.1 g/dL (31.6-35.5); Mean Corpuscular Hemoglobin 31.1 pg (28.0-33.3); Mean Corpuscular Volume 91.1 fL (83.0-100.0); Monocytes # 0.5 K/mcL (0.0-1.3); Monocytes % 4.3 %; Neutrophils # 8.6 K/mcL (1.6-8.9); Platelet Count 229 K/mcL (140-400); Red Blood Count 3.83 M/mcL (4.19-5.50); Red Cell Distribution Width 14.4 % (11.5-14.5); Segmented Neutrophils % 77.1 %; White Blood Count 11.2 K/mcL (4.3-11.1)
[2020-06-04 02:52] LABS: INR 1.2; Prothrombin Time 13.7 Seconds (9.4-12.1)
[2020-06-04 03:03] LABS: Alanine Aminotransferase 9 Units/L (7-52); Albumin/Globulin Ratio 1.2 (1.1-2.2); Alkaline Phosphatase 46 Units/L (34-104); Aspartate Amino Transferase 13 Units/L (13-39); BUN/Creatinine Ratio 29 (6-26); Bilirubin,Total 0.6 mg/dL (0.3-1.0); Blood Urea Nitrogen 18 mg/dL (8-23); Calcium 8.7 mg/dL (8.6-10.3); Carbon Dioxide 20 mEq/L (23-29); Chloride 108 mEq/L (98-107); Chol/HDL Ratio 4.5 (0-4.9); Cholesterol 147 mg/dL (< 200); Globulin 2.5 g/dL (2.4-3.5); Glucose 94 mg/dL (70-105); HDL Cholesterol 33 mg/dL (40-59); LDL Cholesterol,Calculated 97 mg/dL (< 100); Magnesium 1.9 mg/dL (1.6-2.6); Osmolality,Calculated 288 (280-300); Phosphorous 3.1 mg/dL (2.7-4.5); Potassium 3.8 mEq/L (3.5-5.1); Sodium 138 mEq/L (136-145); Total Protein 5.5 g/dL (6.4-8.9); Triglycerides 85 mg/dL (< 150); Troponin I 0.03 ng/mL (< 0.04); eGFR For African Americans > 60 (> 60); eGFR For Non-African Americans > 60 (> 60)
[2020-06-04] MEDS: Azithromycin 250 MG TABLET PO SCH (08:31)
[2020-06-04] MEDS: Ampicillin/Sulbactam 3,000 MG in 0.9 % Sodium Chloride Mini Bag 100 ML IVPB SCH ×3 (08:32→18:02)
[2020-06-04] MEDS: Aspirin Enteric Coated 81 MG Tablet PO SCH (08:32)
[2020-06-04] MEDS: Lactobacillus 1 EACH CAP.SPRINK PO SCH ×2 (08:32→22:10)
[2020-06-04] MEDS ORDERED: cefTRIAXone 1,000 MG in Water for inj. (sterile) 10 ML IVP SCH (09:00)
[2020-06-04] MEDS: Divalproex (12 HR) 500 MG TABLET PO SCH ×2 (15:50→22:08)
[2020-06-04] MEDS: Sucralfate 1 GM TABLET PO SCH ×2 (15:50→22:19)
[2020-06-04] MEDS ORDERED: Gadolinium Contrast Agent (WT Based) IV PRN (17:38)
[2020-06-04] MEDS: *HR* Heparin 5,000 UNIT/ML VIAL SQ SCH (18:02)
[2020-06-04] MEDS ORDERED: Divalproex (12 HR) 500 MG TABLET PO SCH (21:00)
[2020-06-05] MEDS: Ampicillin/Sulbactam 3,000 MG in 0.9 % Sodium Chloride Mini Bag 100 ML IVPB SCH ×5 (00:42→23:15)
[2020-06-05] MEDS: *HR* Heparin 5,000 UNIT/ML VIAL SQ SCH ×2 (05:55→18:03)
[2020-06-05 06:38] LABS: Basophils # 0.1 K/mcL (0.0-0.2); Basophils % 0.9 %; Eosinophils # 0.1 K/mcL (0.0-0.6); Eosinophils % 1.2 %; Hematocrit 32.3 % (37.5-50.1); Hemoglobin 11.2 g/dL (12.9-16.9); Immature Granulocytes % 4.6 % (0-4); Lymphocytes % 21.3 %; Mean Corpuscular HGB Conc 34.7 g/dL (31.6-35.5); Mean Corpuscular Hemoglobin 31.2 pg (28.0-33.3); Mean Platelet Volume 8.6 fL (9.4-12.4); Monocytes # 0.5 K/mcL (0.0-1.3); Monocytes % 4.8 %; Neutrophils # 6.4 K/mcL (1.6-8.9); Platelet Count 207 K/mcL (140-400); Red Blood Count 3.59 M/mcL (4.19-5.50); Red Cell Distribution Width 14.2 % (11.5-14.5); Segmented Neutrophils % 67.2 %; White Blood Count 9.5 K/mcL (4.3-11.1)
[2020-06-05 06:57] LABS: BUN/Creatinine Ratio 21 (6-26); Blood Urea Nitrogen 14 mg/dL (8-23); Calcium 8.3 mg/dL (8.6-10.3); Carbon Dioxide 23 mEq/L (23-29); Chloride 107 mEq/L (98-107); Glucose 104 mg/dL (70-105); Magnesium 1.7 mg/dL (1.6-2.6); Osmolality,Calculated 285 (280-300); Phosphorous 2.4 mg/dL (2.7-4.5); Potassium 3.4 mEq/L (3.5-5.1); Sodium 137 mEq/L (136-145); eGFR For African Americans > 60 (> 60); eGFR For Non-African Americans > 60 (> 60)
[2020-06-05] MEDS ORDERED: dexAMETHasone 4 MG TABLET PO SCH (09:00)
[2020-06-05] MEDS: Azithromycin 250 MG TABLET PO SCH (09:50)
[2020-06-05] MEDS: Lactobacillus 1 EACH CAP.SPRINK PO SCH ×2 (09:50→20:54)
[2020-06-05] MEDS: Aspirin Enteric Coated 81 MG Tablet PO SCH (09:50)
[2020-06-05] MEDS: Sucralfate 1 GM TABLET PO SCH ×2 (09:51→20:54)
[2020-06-05] MEDS: Divalproex (12 HR) 500 MG TABLET PO SCH ×2 (09:51→20:55)
[2020-06-05] MEDS ORDERED: Ipratropium/Albuterol Neb 3 ML IH PRN (18:10)
[2020-06-05] MEDS: dexAMETHasone 4 MG TABLET PO SCH (20:55)
[2020-06-06 04:45] LABS: Basophils # 0.1 K/mcL (0.0-0.2); Basophils % 1.3 %; Eosinophils % 0.1 %; Hemoglobin 12.2 g/dL (12.9-16.9); Immature Granulocytes % 7.5 % (0-4); Lymphocytes # 1.3 K/mcL (0.6-4.6); Lymphocytes % 14.5 %; Mean Corpuscular HGB Conc 33.9 g/dL (31.6-35.5); Mean Corpuscular Hemoglobin 31.5 pg (28.0-33.3); Mean Platelet Volume 8.9 fL (9.4-12.4); Monocytes # 0.3 K/mcL (0.0-1.3); Monocytes % 2.7 %; Neutrophils # 6.8 K/mcL (1.6-8.9); Platelet Count 229 K/mcL (140-400); Red Blood Count 3.87 M/mcL (4.19-5.50); Red Cell Distribution Width 14.2 % (11.5-14.5); Segmented Neutrophils % 73.9 %; White Blood Count 9.2 K/mcL (4.3-11.1)
[2020-06-06 05:05] LABS: BUN/Creatinine Ratio 14 (6-26); Blood Urea Nitrogen 9 mg/dL (8-23); Carbon Dioxide 21 mEq/L (23-29); Chloride 107 mEq/L (98-107); Glucose 113 mg/dL (70-105); Magnesium 2.1 mg/dL (1.6-2.6); Osmolality,Calculated 281 (280-300); Phosphorous 2.7 mg/dL (2.7-4.5); Potassium 4.2 mEq/L (3.5-5.1); Sodium 136 mEq/L (136-145); eGFR For African Americans > 60 (> 60); eGFR For Non-African Americans > 60 (> 60)
[2020-06-06 05:18] LABS: Macrocytosis Present (Not Present); Platelet Estimate Normal (Normal)
[2020-06-06] MEDS: Ampicillin/Sulbactam 3,000 MG in 0.9 % Sodium Chloride Mini Bag 100 ML IVPB SCH ×2 (05:22→12:18)
[2020-06-06] MEDS: *HR* Heparin 5,000 UNIT/ML VIAL SQ SCH (05:23)
[2020-06-06] MEDS: Sucralfate 1 GM TABLET PO SCH (07:51)
[2020-06-06] MEDS: Aspirin Enteric Coated 81 MG Tablet PO SCH (07:51)
[2020-06-06] MEDS: Divalproex (12 HR) 500 MG TABLET PO SCH (07:51)
[2020-06-06] MEDS: Lactobacillus 1 EACH CAP.SPRINK PO SCH (07:51)
[2020-06-06] MEDS: dexAMETHasone 4 MG TABLET PO SCH (07:51)
[2020-06-06] MEDS: Azithromycin 250 MG TABLET PO SCH (07:52)
[2020-06-06] MEDS ORDERED: E-Z-PAQUE (BARIUM SULF) SUSP 1 BOTTLE PO ONE (14:57)
[2020-06-06] MEDS ORDERED: E-Z-HD (BARIUM SULF) SUSPENSION PO ONE (14:57)
[2020-06-06 15:34] VITALS: BP 128/89
== END 2020-06-06 17:08 | disposition home or self-care (01) | DRG 871 ==
LOC: 2ANU 15:01 → EMEROOARM 15:01 → 2ANU 19:54 → SUATTDRO 06-05 17:01
PROVIDERS: ADMIT Internal Medicine; ATTEND Student in an Organized Health Care Education/Training Program

== ENCOUNTER 2021-03-13 11:40 | Inpatient (IN) ==
[2021-03-13 12:36] LABS: Basophils % 0.4 %; Eosinophils # 0.1 K/mcL (0.0-0.6); Eosinophils % 1.6 %; Hematocrit 43.2 % (37.5-50.1); Hemoglobin 13.5 g/dL (12.9-16.9); Immature Granulocytes % 0.5 % (0-4); Lymphocytes # 0.9 K/mcL (0.6-4.6); Mean Corpuscular HGB Conc 31.3 g/dL (31.6-35.5); Mean Corpuscular Hemoglobin 28.7 pg (28.0-33.3); Mean Corpuscular Volume 91.9 fL (83.0-100.0); Mean Platelet Volume 9.8 fL (9.4-12.4); Monocytes # 0.6 K/mcL (0.0-1.3); Monocytes % 7.6 %; Platelet Count 130 K/mcL (140-400); Red Cell Distribution Width 16.8 % (11.5-14.5); Segmented Neutrophils % 77.9 %; White Blood Count 7.7 K/mcL (4.3-11.1)
[2021-03-13 12:47] LABS: INR 1.2; Prothrombin Time 12.9 Seconds (9.4-12.1)
[2021-03-13 12:50] LABS: Activated Partial Thrombo Time 31.7 Seconds (26.0-36.0)
[2021-03-13 13:13] LABS: BUN/Creatinine Ratio 17 (6-26); Blood Urea Nitrogen 13 mg/dL (8-23); Calcium 9.1 mg/dL (8.6-10.3); Carbon Dioxide 31 mEq/L (23-29); Chloride 104 mEq/L (98-107); Glucose 91 mg/dL (70-105); Osmolality,Calculated 290 (280-300); Potassium 4.4 mEq/L (3.5-5.1); Sodium 140 mEq/L (136-145); Troponin I < 0.03 ng/mL (< 0.04); eGFR For African Americans > 60 (> 60); eGFR For Non-African Americans > 60 (> 60)
[2021-03-13] MEDS ORDERED: Ondansetron ODT 4 MG TAB.RAPDIS PO PRN (14:10)
[2021-03-13] MEDS ORDERED: HYDROcodone BIT/Homatropine LQ 5 MG/5 ML UDC PO PRN (14:10)
[2021-03-13] MEDS ORDERED: Benzonatate 100 MG CAPSULE PO PRN (14:10)
[2021-03-13] MEDS ORDERED: Diphenoxylate/Atropine 1 TAB TABLET PO PRN (14:10)
[2021-03-13] MEDS ORDERED: Naloxone 0.4 MG/ML INJ IVP PRN (14:13)
[2021-03-13] MEDS ORDERED: *HR* LORazepam 1 MG TABLET PO PRN (16:09)
[2021-03-13] MEDS: Budesonide/Formoterol 160/4.5 1 PUFF INH IH SCH (20:59)
[2021-03-13] MEDS: Loratadine 10 MG TABLET PO SCH (21:01)
[2021-03-13] MEDS: Divalproex (12 HR) 500 MG TABLET PO SCH (21:01)
[2021-03-13] MEDS: *HR* Heparin 5,000 UNIT/ML VIAL SQ SCH (21:01)
[2021-03-14] MEDS: Albuterol 2.5 MG/3 ML NEBULIZER IH PRN ×2 (03:44→21:30)
[2021-03-14] MEDS: *HR* Heparin 5,000 UNIT/ML VIAL SQ SCH ×3 (04:42→20:26)
[2021-03-14 06:06] LABS: Basophils % 0.7 %; Eosinophils # 0.1 K/mcL (0.0-0.6); Eosinophils % 2.4 %; Hematocrit 39.6 % (37.5-50.1); Hemoglobin 12.3 g/dL (12.9-16.9); Immature Granulocytes % 0.7 % (0-4); Lymphocytes # 0.9 K/mcL (0.6-4.6); Lymphocytes % 16.1 %; Mean Corpuscular HGB Conc 31.1 g/dL (31.6-35.5); Mean Corpuscular Hemoglobin 28.4 pg (28.0-33.3); Mean Corpuscular Volume 91.5 fL (83.0-100.0); Mean Platelet Volume 10.1 fL (9.4-12.4); Monocytes # 0.5 K/mcL (0.0-1.3); Monocytes % 9.1 %; Neutrophils # 3.9 K/mcL (1.6-8.9); Platelet Count 124 K/mcL (140-400); Red Blood Count 4.33 M/mcL (4.19-5.50); Red Cell Distribution Width 17.1 % (11.5-14.5); White Blood Count 5.5 K/mcL (4.3-11.1)
[2021-03-14 06:18] LABS: BUN/Creatinine Ratio 18 (6-26); Blood Urea Nitrogen 14 mg/dL (8-23); Calcium 8.9 mg/dL (8.6-10.3); Carbon Dioxide 28 mEq/L (23-29); Chloride 105 mEq/L (98-107); Glucose 93 mg/dL (70-105); Osmolality,Calculated 288 (280-300); Potassium 4.3 mEq/L (3.5-5.1); Sodium 139 mEq/L (136-145); eGFR For African Americans > 60 (> 60); eGFR For Non-African Americans > 60 (> 60)
[2021-03-14] MEDS ORDERED: *HR* FentaNYL (PF) 250 MCG/5 ML VIAL ONE (07:24)
[2021-03-14] MEDS ORDERED: Ondansetron 4 MG/2 ML VIAL ONE (07:25)
[2021-03-14] MEDS ORDERED: *HR* Rocuronium Bromide 50 MG/5 ML VIAL ONE (07:25)
[2021-03-14] MEDS ORDERED: Lidocaine 2% Syringe 100 MG/5 ML ONE (07:27)
[2021-03-14] MEDS ORDERED: *HR* Propofol 200 MG/20 ML VIAL IVP ONE (07:29)
[2021-03-14] MEDS ORDERED: Lidocaine -MPF 2% 5 ML VIAL ONE (07:38)
[2021-03-14] MEDS: Budesonide/Formoterol 160/4.5 1 PUFF INH IH SCH ×2 (07:39→19:48)
[2021-03-14] MEDS: Lactobacillus 1 EACH CAP.SPRINK PO SCH ×2 (07:52→10:36)
[2021-03-14] MEDS: Divalproex (12 HR) 500 MG TABLET PO SCH ×3 (07:52→20:26)
[2021-03-14] MEDS ORDERED: ceFAZolin 2,000 MG in Water for inj. (sterile) 20 ML IVP ONE (08:13)
[2021-03-14] MEDS ORDERED: *HR* FentaNYL (PF) 100 MCG/2 ML VIAL IVP PRN (08:15)
[2021-03-14] MEDS ORDERED: *HR* OxyCODONE Immed Rel 5 MG TABLET PO PRN (08:15)
[2021-03-14] MEDS ORDERED: Ondansetron 4 MG/2 ML VIAL IVP PRN (08:15)
[2021-03-14] MEDS ORDERED: Albuterol 2.5 MG/3 ML NEBULIZER IH PRN (08:15)
[2021-03-14] MEDS ORDERED: *HR* Metoprolol 5 MG/5 ML VIAL IVP PRN (08:15)
[2021-03-14] MEDS ORDERED: Acetaminophen IV 1,000 MG/100 ML BAG IVPB ONE (08:18)
[2021-03-14] MEDS ORDERED: *HR* Succinylcholine 200 MG/10 ML VIAL IVP ONE (08:20)
[2021-03-14] MEDS ORDERED: CeFAZolin Syr 2,000MG/20 ML 2,000 MG/20 ML SYRINGE IVPB ONE (09:15)
[2021-03-14] MEDS ORDERED: *HR* HYDROcodone/Acet 5/325 mg TABLET PO PRN (09:24)
[2021-03-14] MEDS ORDERED: Acetaminophen 325 MG TABLET PO PRN (09:24)
[2021-03-14 13:15] LABS: Appearance of Pericardial Fl Cloudy (Clear)
[2021-03-14] MEDS: 0.9 % Sodium Chloride w KCl 20 MEQ/1,000 ML MLS IVC SCH (15:36)
[2021-03-14] MEDS: CeFAZolin 2 GM/120 ML BAG IVPB SCH (16:56)
[2021-03-14] MEDS: Loratadine 10 MG TABLET PO SCH (16:59)
[2021-03-15] MEDS: CeFAZolin 2 GM/120 ML BAG IVPB SCH (01:07)
[2021-03-15] MEDS: *HR* Heparin 5,000 UNIT/ML VIAL SQ SCH ×3 (05:05→20:45)
[2021-03-15 07:09] LABS: BUN/Creatinine Ratio 20 (6-26); Blood Urea Nitrogen 17 mg/dL (8-23); Calcium 8.6 mg/dL (8.6-10.3); Carbon Dioxide 30 mEq/L (23-29); Chloride 103 mEq/L (98-107); Glucose 116 mg/dL (70-105); Osmolality,Calculated 287 (280-300); Potassium 4.4 mEq/L (3.5-5.1); Sodium 137 mEq/L (136-145); eGFR For African Americans > 60 (> 60); eGFR For Non-African Americans > 60 (> 60)
[2021-03-15 07:19] LABS: Basophils % 0.1 %; Hematocrit 41.6 % (37.5-50.1); Hemoglobin 13.3 g/dL (12.9-16.9); Immature Granulocytes % 0.5 % (0-4); Lymphocytes # 1.4 K/mcL (0.6-4.6); Lymphocytes % 9.1 %; Mean Corpuscular Hemoglobin 29.2 pg (28.0-33.3); Mean Corpuscular Volume 91.4 fL (83.0-100.0); Mean Platelet Volume 10.2 fL (9.4-12.4); Monocytes # 0.9 K/mcL (0.0-1.3); Monocytes % 5.7 %; Neutrophils # 12.9 K/mcL (1.6-8.9); Platelet Count 143 K/mcL (140-400); Red Blood Count 4.55 M/mcL (4.19-5.50); Red Cell Distribution Width 16.5 % (11.5-14.5); Segmented Neutrophils % 84.6 %
[2021-03-15 07:20] LABS: White Blood Count 15.2 K/mcL (4.3-11.1)
[2021-03-15] MEDS: Budesonide/Formoterol 160/4.5 1 PUFF INH IH SCH (08:48)
[2021-03-15] MEDS: Lactobacillus 1 EACH CAP.SPRINK PO SCH (09:42)
[2021-03-15] MEDS: Divalproex (12 HR) 500 MG TABLET PO SCH ×2 (09:42→20:44)
[2021-03-15] MEDS: 0.9 % Sodium Chloride w KCl 20 MEQ/1,000 ML MLS IVC SCH (11:38)
[2021-03-15] MEDS: Loratadine 10 MG TABLET PO SCH (16:37)
[2021-03-16] MEDS: Budesonide/Formoterol 160/4.5 1 PUFF INH IH SCH ×3 (00:36→19:56)
[2021-03-16 01:32] LABS: Basophils % 0.3 %; Eosinophils % 0.2 %; Hematocrit 42.3 % (37.5-50.1); Hemoglobin 13.3 g/dL (12.9-16.9); Immature Granulocytes % 0.7 % (0-4); Lymphocytes # 1.8 K/mcL (0.6-4.6); Lymphocytes % 14.4 %; Mean Corpuscular HGB Conc 31.4 g/dL (31.6-35.5); Mean Corpuscular Hemoglobin 28.7 pg (28.0-33.3); Mean Corpuscular Volume 91.4 fL (83.0-100.0); Monocytes # 0.8 K/mcL (0.0-1.3); Monocytes % 6.7 %; Neutrophils # 9.4 K/mcL (1.6-8.9); Platelet Count 162 K/mcL (140-400); Red Blood Count 4.63 M/mcL (4.19-5.50); Red Cell Distribution Width 16.7 % (11.5-14.5); Segmented Neutrophils % 77.7 %; White Blood Count 12.1 K/mcL (4.3-11.1)
[2021-03-16 01:48] LABS: BUN/Creatinine Ratio 25 (6-26); Blood Urea Nitrogen 24 mg/dL (8-23); Calcium 8.8 mg/dL (8.6-10.3); Carbon Dioxide 30 mEq/L (23-29); Chloride 104 mEq/L (98-107); Glucose 96 mg/dL (70-105); Magnesium 1.8 mg/dL (1.6-2.6); Osmolality,Calculated 290 (280-300); Phosphorous 3.5 mg/dL (2.7-4.5); Potassium 4.8 mEq/L (3.5-5.1); Sodium 138 mEq/L (136-145); eGFR For African Americans > 60 (> 60); eGFR For Non-African Americans > 60 (> 60)
[2021-03-16] MEDS: *HR* Heparin 5,000 UNIT/ML VIAL SQ SCH ×3 (05:45→19:38)
[2021-03-16] MEDS: Divalproex (12 HR) 500 MG TABLET PO SCH ×2 (08:25→19:38)
[2021-03-16] MEDS: Lactobacillus 1 EACH CAP.SPRINK PO SCH (08:25)
[2021-03-16] MEDS: 0.9 % Sodium Chloride w KCl 20 MEQ/1,000 ML MLS IVC SCH (08:31)
[2021-03-16] MEDS: Loratadine 10 MG TABLET PO SCH (17:23)
[2021-03-17] MEDS: Albuterol 2.5 MG/3 ML NEBULIZER IH PRN (01:32)
[2021-03-17] MEDS: 0.9 % Sodium Chloride w KCl 20 MEQ/1,000 ML MLS IVC SCH ×2 (02:59→21:14)
[2021-03-17] MEDS: *HR* Heparin 5,000 UNIT/ML VIAL SQ SCH ×3 (05:55→21:14)
[2021-03-17] MEDS: Lactobacillus 1 EACH CAP.SPRINK PO SCH (07:26)
[2021-03-17] MEDS: Divalproex (12 HR) 500 MG TABLET PO SCH ×2 (07:26→21:14)
[2021-03-17] MEDS: Budesonide/Formoterol 160/4.5 1 PUFF INH IH SCH ×2 (07:27→19:32)
[2021-03-17] MEDS: Loratadine 10 MG TABLET PO SCH (16:56)
[2021-03-18 04:01] LABS: Basophils # 0.1 K/mcL (0.0-0.2); Basophils % 0.8 %; Eosinophils # 0.1 K/mcL (0.0-0.6); Eosinophils % 1.1 %; Hematocrit 40.4 % (37.5-50.1); Hemoglobin 12.7 g/dL (12.9-16.9); Immature Granulocytes % 1.3 % (0-4); Lymphocytes # 1.5 K/mcL (0.6-4.6); Lymphocytes % 19.7 %; Mean Corpuscular HGB Conc 31.4 g/dL (31.6-35.5); Mean Corpuscular Hemoglobin 28.7 pg (28.0-33.3); Mean Corpuscular Volume 91.4 fL (83.0-100.0); Mean Platelet Volume 9.7 fL (9.4-12.4); Monocytes # 0.7 K/mcL (0.0-1.3); Monocytes % 8.6 %; Neutrophils # 5.2 K/mcL (1.6-8.9); Platelet Count 162 K/mcL (140-400); Red Blood Count 4.42 M/mcL (4.19-5.50); Red Cell Distribution Width 16.8 % (11.5-14.5); Segmented Neutrophils % 68.5 %; White Blood Count 7.5 K/mcL (4.3-11.1)
[2021-03-18 04:17] LABS: BUN/Creatinine Ratio 29 (6-26); Blood Urea Nitrogen 24 mg/dL (8-23); Calcium 8.6 mg/dL (8.6-10.3); Carbon Dioxide 30 mEq/L (23-29); Chloride 105 mEq/L (98-107); Glucose 92 mg/dL (70-105); Magnesium 1.8 mg/dL (1.6-2.6); Osmolality,Calculated 290 (280-300); Phosphorous 3.2 mg/dL (2.7-4.5); Potassium 4.1 mEq/L (3.5-5.1); Sodium 138 mEq/L (136-145); eGFR For African Americans > 60 (> 60); eGFR For Non-African Americans > 60 (> 60)
[2021-03-18] MEDS: *HR* Heparin 5,000 UNIT/ML VIAL SQ SCH (04:24)
[2021-03-18] MEDS: Lactobacillus 1 EACH CAP.SPRINK PO SCH (09:36)
[2021-03-18] MEDS: Divalproex (12 HR) 500 MG TABLET PO SCH (09:36)
[2021-03-18] MEDS: Budesonide/Formoterol 160/4.5 1 PUFF INH IH SCH (10:21)
[2021-03-18 11:04] VITALS: BP 123/79; PULSE 81; TEMP 98.1; O2SAT 94
== END 2021-03-18 13:51 | disposition home or self-care (01) | DRG 271 ==
LOC: EMEROOARM 11:40 → SUATTDRO 16:46 → 2NENU 16:46 → 2NNU 03-14 14:38
PROVIDERS: ADMIT Internal Medicine; ATTEND Internal Medicine